=== PATIENT | male | born 1965 | race Caucasian/White ===

== ENCOUNTER 2020-06-23 16:02 | Emergency (ER) | payer OTHER, SELFPAY ==
--- NOTE | ~2020-06-23 | XR_ITS ---
XR chest 1V portable 06/23/2020 17:24 Indication: Chest pain with inspiration. Shortness of breath. Procedure: AP portable chest Comparison: No prior studies for comparison. Findings: Heart size normal. No focal air space disease, pulmonary edema, pleural effusion or suspect ed pneumothorax. Calcified granuloma left upper lobe. No acute osseous abnormality. Impression: 1: No acute cardiopulmonary disease. Reviewed, dictated and finalized at location A. INSPECTOR Impression: 1: No acute cardiopulmonary disease.
[2020-06-23 16:30] VITALS: BP 138/89; PULSE 89; RESP 16; TEMP 36.7; O2SAT 96
--- NOTE | 2020-06-23 16:56 | ECG_ITS ---
Measurements Intervals Diamond Rate: 59 P: 72 HI: 177 QRS: 86 QRSD: 90 T: 70 QT: 379 QTc: 378 Interpretive Statements SINUS BRADYCARDIA BORDERLINE ECG Electronically Signed On 06-23-2020 17:20:57 DEALERSHIP MANAGER by Uriel Avila D.O.
[2020-06-23 17:29] LABS: Troponin I 5.3 ng/L (0.00-60.4)
[2020-06-23 17:30] LABS: D Dimer 0.43 mg/L (0.19-0.50)
--- NOTE | 2020-06-23 17:40 | ED.URI ---
HPI - URI/Sore Throat General Chief Complaint: Upper Respiratory Infection Stated Complaint: covid + sent by doctor Source: patient Mode of arrival: ambulatory Limitations: no limitations History of Present Illness HPI Narrative: Pt was called by health department to check (because he was dx with COVID) and today he was having some burning in chest wall with deep breaths, sore throat and left ear pain. No fevers, no nausea no vomiting. MD elicited complaint: sore throat Onset (ago): day(s) Consistency: constant Able to tolerate fluids by mouth: Yes Exacerbating factors: deep breaths Relieving factors: nothing Context: sick contacts Associated symptoms: denies other symptoms Treatments prior to arrival: none Related Data Home Medications Medication Instructions Recorded Confirmed No Home Medications 06/23/20 06/23/20 Allergies Allergy/AdvReac Type Severity Reaction Status Date / Time Penicillins Allergy Unknown Verified 06/23/20 16:55 Review of Systems Constitutional: Constitutional: Reports no additional constitutional complaints, Denies chills, Reports fatigue, Denies fever(s) and Denies weakness Eyes: Eyes: Reports no additional eye complaints ENT: Denies dysphagia, Denies vertigo, Denies dizziness, Denies epistaxis, Denies nasal congestion and Reports sore throat Cardiovascular: Cardiovascular: Reports no additional cardiovascular complaints Respiratory: Respiratory: Reports no additional respiratory complaints Gastrointestinal: Gastrointestinal: Reports no additional gastrointestinal complaints Musculoskeletal: Musculoskeletal: Reports no additional musculoskeletal complaints Neurologic: Reports system reviewed and no additional complaints, except as documented Psychiatric: Psychiatric: Reports no additional psychiatric complaints Hematologic/Lymphatic: Hematologic/Lymphatic: Reports no additional hematologic/lymphatic complaints Allergic/Immunologic: Allergic/Immunologic: Reports no additional allergic/immunologic complaints PMFSH Social History Social History (Updated 06/23/20 @ 17:44 by Imani Humphries MD) Smoking status: Never smoker Alcohol intake: never Substance use: never Living arrangements: with family Exam Const: General: healthy appearing, no acute distress and alert Nutritional Appearance: well nourished and thin Orientation/consciousness: patient oriented x3 HENMT: Head: normal to inspection Eyes: Pupils: Equal, round and reactive pupils present EOM: EOMs intact bilaterally Neck: Neck: normal visual inspection Chest: Chest palpation & inspection: normal inspection of the chest Resp: Effort & Inspection: normal respiratory effort Auscultation: clear to auscultation bilaterally Cardio: Rate: regular rate Rhythm: regular rhythm GI: GI Palp: Yes Soft to palpation and No Tenderness to palpation present (GI) Auscultation: normal bowel sounds Skin: General skin exam: normal color Rashes: no rashes Neuro: General: patient oriented x3 and moves all extremities Extrem: General: normal to inspection Psych: Appearance: grossly normal Mental Status: mental status grossly normal Thought content: Yes Normal thought content present Course Vital Signs Vital signs: Vital Signs Temperature 36.7 C 06/23/20 16:30 Pulse Rate 89 06/23/20 16:30 Respiratory Rate 16 06/23/20 16:30 Blood Pressure 138/89 06/23/20 16:30 Pulse Oximetry 96 06/23/20 16:30 Temperature 36.7 C 06/23/20 16:30 Pulse Rate 89 06/23/20 16:30 Respiratory Rate 16 06/23/20 16:30 Blood Pressure 138/89 06/23/20 16:30 Pulse Oximetry 96 06/23/20 16:30 MDM - URI/Sore Throat Lab Data Labs: Lab Results 06/23/20 06/23/20 Range/Units 17:08 17:08 D-Dimer 0.43 (0.19-0.50) mg/L Troponin I 5.3 (0.00-60.4) ng/L Discharge Plan Discharge Clinical Impression: COVID-19 Patient Disposition: Home, Self-Care Condition: Stable Instru
[2020-06-23 18:00] VITALS: BP 128/94; PULSE 73; RESP 16; O2SAT 98
== END 2020-06-23 18:00 | disposition home or self-care (01) ==
PROVIDERS: Emergency Provider Emergency Medicine; PCP Internal Medicine
DX: U07.1 COVID-19 (principal)
CPT/HCPCS: 36415; 71045; 84484; 85380; 93005; 99283; 99284

== ENCOUNTER 2020-12-26 15:17 | Emergency (ER) | payer OTHER, SELFPAY ==
[2020-12-26 15:50] VITALS: BP 143/94; PULSE 84; RESP 16; TEMP 37; O2SAT 96
--- NOTE | 2020-12-26 16:09 | ED.LOWEXIN ---
HPI - Extremity Injury (Lower) General Chief Complaint: Extremity Injury, Lower Stated Complaint: Left leg injury Source: patient Mode of arrival: ambulatory Limitations: no limitations History of Present Illness HPI Narrative: this is a 55-year-old gentleman that presents after he was doing some lifting and heard a pop in his left posterior thigh area with currently no bruising no hip pain has good range of motion with no sciatic nerve discomfort or pain, no saddle paresthesias has good range of motion although tender with movement, walking and with palpation. complaint: thigh injury Onset (ago): hour(s) Injury: Left: thigh ( Tender with palpation with no bruising) Type of Injury: hyperflexion Place: home Severity: mild Relieving factors: immobilization Exacerbating factors: movement Related Data Home Medications Medication Instructions Recorded Confirmed No Home Medications 06/23/20 12/26/20 Allergies Allergy/AdvReac Type Severity Reaction Status Date / Time Penicillins Allergy Unknown Verified 12/26/20 16:02 Review of Systems Review of Systems: All systems reviewed & are unremarkable except as noted in HPI and below PMFSH Past Medical History Medical History Patient denies medical problems Social History Social History Smoking status: Never smoker Alcohol intake: never Substance use: never Exam Const: General: no acute distress and alert Orientation/consciousness: patient oriented x3 HENMT: Head: normal to inspection Eyes: Pupils: Equal, round and reactive pupils present Neck: Neck: normal visual inspection, no lymphadenopathy and no meningeal signs Chest: Chest palpation & inspection: normal inspection of the chest Resp: Effort & Inspection: normal respiratory effort Auscultation: clear to auscultation bilaterally Cardio: Rate: regular rate Rhythm: regular rhythm GI: GI Palp: Yes Soft to palpation Percussion: Yes normal to percussion : Testes: Testes normal Urinary Catheter: Urinary Catheter: patent and draining Back/Spine/Pelvis: Back: no CVA tenderness Skin: General skin exam: normal color Rashes: no rashes Neuro: General: patient oriented x3 and moves all extremities Extrem: Other: tenderness posterior left thigh hamstring area is tender with palpation and movement Psych: Appearance: grossly normal and well kempt Mental Status: mental status grossly normal Affect: normal affect Course Course Emergency Course: patient received a shot of IM Toradol, and Duglas wrap. Critical Care Time Critical Care Time Critical Care Time: No Discharge Plan Discharge Clinical Impression: Hamstring strain Qualifiers: Encounter type: initial encounter Laterality: left Qualified Code(s): S76.312A - Strain of muscle, fascia and tendon of the posterior muscle group at thigh level, left thigh, initial encounter Patient Disposition: Home, Self-Care Condition: Stable Instructions: Antibiotic Form, Hamstring Injury (ED) Additional Instructions: can take Motrin 600mg twice daily with meals for the next 4 to 5 days, and follow up with primary care physician for further evaluation. Prescriptions: No Action No Home Medications RF: 0 Follow-up/Referrals: Jose Luis Centeno MD [Primary Care Provider] - Time of Disposition: 16:14
[2020-12-26 16:24] VITALS: BP 143/94; PULSE 84; RESP 16; TEMP 37; O2SAT 96
== END 2020-12-26 16:27 | disposition home or self-care (01) ==
PROVIDERS: Emergency Provider Emergency Medicine; PCP Internal Medicine
DX: S76.312A Strain of muscle, fascia and tendon of the posterior muscle group at thigh level, left thigh, initial encounter (principal); X50.9XXA Other and unspecified overexertion or strenuous movements or postures, initial encounter
CPT/HCPCS: 99282

== ENCOUNTER 2021-01-26 07:29 | Outpatient (RCR) | payer OTHER, SELFPAY ==
--- NOTE | 2021-01-26 08:52 | PTOPEVAL ---
Thank you for referring Hubert Guaman to [facility].? The patient is scheduled to be seen for therapy? ____x/week for ___ weeks. Please review, sign, date and return this plan of care HAL. I agree with and certify that the following plan of care is medically necessary. Referring Physician Date Admitting Provider: Attending Provider: Hubert Herrera Referring Provider: WilPT Outpatient Evaluation Start: 01/26/21 07:06 Freq: Status: Active Protocol: Document 01/26/21 07:05 [facility] (Rec: 01/26/21 08:14 [facility] [id number]) Therapy Assessment Status Assessment Status Assessment Status Evaluation Outpatient Past Medical History Gastrointestinal History Hx Hernia Yes Musculoskeletal History Hx Back Pain Yes Evaluation Information Problem Diagnosis L proximal hamstrings tendon rupture. Onset 12/26/20 Additional Evaluation Detail LEFS = 25% functionally declined Subjective Information patient report she was out in Query Text:As Reported By Patient/ the yard moving bags of dirt. Family he reports he felt his hamstring pop during one toss of a bag of dirt. he reports he does have a 3cm tear in the proximal hamstrings. he reports he is off work until rehabed. 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 he reports the doctors main concern was his return to prior level lifting performance. he reports he has pain in the posterio L thigh that feels like a cramp. he reports he has been resting a lot lately and has had a big flare up. he reports intially lifting his leg/stretching the hamstrings caused pain and squatting/lifting caused pain. he reports his sleeping is unchanged. 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 prior to injury, no issues with the L leg/thigh. Pain Assessment Timing of Pain Assessment Timing of Pain Assessm
--- NOTE | 2021-02-04 08:29 | PTOPEVAL ---
Thank you for referring Hubert Guaman to [facility].? The patient is scheduled to be seen for therapy? ____x/week for ___ weeks. Please review, sign, date and return this plan of care HAL. I agree with and certify that the following plan of care is medically necessary. Referring Physician Date Admitting Provider: Attending Provider: Hubert Herrera Referring Provider: WilPT Outpatient Evaluation Start: 01/26/21 07:06 Freq: Status: Active Protocol: Document 02/04/21 06:54 [facility] (Rec: 02/04/21 08:29 [facility] [id number]) Therapy Assessment Status Assessment Status Assessment Status Progress Outpatient Past Medical History Gastrointestinal History Hx Hernia Yes Musculoskeletal History Hx Back Pain Yes Evaluation Information Problem Diagnosis L proximal hamstrings tendon rupture. Onset 12/26/20 Subjective Information patient reports he feels good Query Text:As Reported By Patient/ this date. he reports he is Family better overall. he reports no pain in the posterior L thigh this date. he reports his pain has been less frequent, but reports at times he will still feel a tightness/knot in the leg. Pain Assessment Timing of Pain Assessment Timing of Pain Assessment Assessment Self Report Self Report Pain Level 0 Pain Score Pain Score 0: Self Report Lower Extremity Muscle Strength Testing Knee Strength Left Knee Flexion Strength 4+ Good + Knee Extension Strength 5 Normal Muscle Length Testing Muscle Length Testing Left Hamstring Length 25 Query Text:(90 - 90 Position) Right Hamstring Length 20 Query Text:(90 - 90 Position) Palpation Assessment Palpation Palpation patient presents with tenderness to the medial distal mm belly of the semi- tendonosis and semi- membranosis. General Exercise General Exercises Exercise Description -passive hamstrings stretching Query Text:Record Sets, Reps, 5 minutes L Resistance, and Position -supine HS sets 3 sec x 20 -SLR x 20 -HS flossing with tennis ball at proximal/ distal HS seated with LAQ x 3 minutes -golfers lifts 2.2lbs x10 bilat -stiff legged deadlifts 15
--- NOTE | 2021-02-18 08:03 | PTOPEVAL ---
Thank you for referring Hubert Guaman to [facility].? The patient is scheduled to be seen for therapy? ____x/week for ___ weeks. Please review, sign, date and return this plan of care HAL. I agree with and certify that the following plan of care is medically necessary. Referring Physician Date Admitting Provider: Attending Provider: Hubert Herrera Referring Provider: WilPT Outpatient Evaluation Start: 01/26/21 07:06 Freq: Status: Active Protocol: Document 02/18/21 07:00 [facility] (Rec: 02/18/21 08:01 [email or web address]) Therapy Assessment Status Assessment Status Assessment Status Discharge Outpatient Past Medical History Gastrointestinal History Hx Hernia Yes Musculoskeletal History Hx Back Pain Yes Evaluation Information Problem Diagnosis L proximal hamstrings tendon rupture. Onset 12/26/20 Additional Evaluation Detail LEFS = 0% functional deficits Subjective Information patient reports he feels Query Text:As Reported By Patient/ great this date. he reports Family no pain in the L posterior thigh this date. Pain Assessment Timing of Pain Assessment Timing of Pain Assessment Assessment Self Report Self Report Pain Level 0 Pain Score Pain Score 0: Self Report Lower Extremity Muscle Strength Testing Hip Strength Left Hip Flexion Strength 5 Normal Hip Extension Strength 5 Normal Knee Strength Left Knee Flexion Strength 5 Normal Knee Extension Strength 5 Normal Muscle Length Testing Muscle Length Testing Left Hamstring Length 10 Query Text:(90 - 90 Position) Right Hamstring Length 15 Query Text:(90 - 90 Position) Gait Assessment Gait Pattern Assessment Gait Pattern No Deviations/Normal General Exercise General Exercises Exercise Description -rece bike 10 minutes for Query Text:Record Sets, Reps, active warm up of tissues and Resistance, and Position to assess for mm endurance of the hamstrings -passive hamstrings stretching 10 minutes -supine HS sets 10 sec x 10 -prone ham swimmers x1 minute with 2lbs bilaterally -HS flossing with tennis ball at proximal/ distal HS seated with LAQ x 3 minutes -golfers lifts 2.2lbs x10 bilat -stiff legged deadlifts 15lb
== END 2021-02-18 09:01 | disposition home or self-care (01) ==
LOC: CHSPT 07:29
PROVIDERS: PCP Internal Medicine
DX: S76.812A Strain of other specified muscles, fascia and tendons at thigh level, left thigh, initial encounter (principal)
CPT/HCPCS: 97035; 97110; 97140; 97161; 97530

== ENCOUNTER 2023-11-22 09:38 | Outpatient (CLI) | payer OTHER, SELFPAY | END 2023-11-22 09:39 | disposition home or self-care (01) | PROVIDERS: PCP Internal Medicine; Visit Provider Internal Medicine | DX: M25.572 Pain in left ankle and joints of left foot (principal) | CPT/HCPCS: 73630 ==

== ENCOUNTER 2023-12-25 01:37 | Day surgery (SDC) | payer OTHER, SELFPAY ==
[2023-12-05 13:41] VITALS: BMI 25.2
--- NOTE | 2023-12-05 14:00 | PC.NURSE ---
Patient has current DNR. Patient verbalized wishes to remain DNR for procedure. He was instructed by this RN to bring in all paperwork. Patient verbalized understanding.
[2023-12-25 06:21] VITALS: BP 124/92; PULSE 68; RESP 18; TEMP 36.2; O2SAT 100
[2023-12-25] MEDS: LACTATED RINGERS 1,000 ML 150 ML IV CONT (06:31)
--- NOTE | 2023-12-25 07:26 | WPDANESEPPF ---
Anes - Initial Pre Proc Eval Procedure: Operation Date: 12/25/23 07:30 Proposed Procedures p Colonoscopy - Toney Beltran DO Date/Time: 12/25/23 07:26 Surgeon: Toney Beltran DO Pre Op Diagnosis: Melena Patient Data Age: 58 Gender: M Height: 1.8 m Weight: 80.4 kg Last Vital Signs Temp 97.1 F L 12/25/23 06:21 Pulse 68 12/25/23 06:21 Resp 18 12/25/23 06:21 BP 124/92 H 12/25/23 06:21 Pulse Ox 100 12/25/23 06:21 O2 Del Method Room Air 12/25/23 06:21 Allergies Allergy/AdvReac Type Severity Reaction Status Date / Time Penicillins Allergy Rash Verified 12/25/23 06:20 Home Medications Medication Instructions Recorded Confirmed Type aspirin 81 mg tablet 81 mg PO DAILY 12/05/23 12/25/23 History metoprolol succinate 25 mg 50 mg PO Q12H 12/05/23 12/25/23 History tablet,extended release 24 hr rosuvastatin 40 mg tablet 40 mg PO HS 12/05/23 12/25/23 History Patient hx anesthesia problems: none Family hx anesthesia problems: none Results Review: All pre-operative results and documents have been reviewed as part of the pre-operative evaluation. [facility] Past Medical History Medical History Patient denies medical problems Social History Social History Smoking status: Never smoker Alcohol intake: never Substance use: never Substance use type: does not use Living arrangements: with family Spiritual care concerns: No Anes - Eval Final PreProcedure Day of Procedure 12/25/23 07:26 Patient weight: normal Heart: regular rate and rhythm Lungs: clear to auscultation Airway: Mallampati scale class II Neurological: alert and oriented Last oral intake: >/= 8 hours ASA classification: III Emergent: no Anesthetic plan: proceed Anesthesia type and monitoring: general GIVS and standard monitoring Results Review: All pre-operative results and documents have been reviewed as part of the pre-operative evaluation. Informed Consent: The patient's anesthetic plan and its attendant risks and benefits were discussed with the patient/family/POA. Questions were solicited and answers provided to the satisfaction of the patient/family/POA.
--- NOTE | 2023-12-25 07:35 | PM.IMHP ---
H&P: HPI History of Present Illness Date/Time: 12/25/23 07:35 Chief Complaint: rectal bleeding with Narrative: this is a 58-year-old man who presents for colonoscopy. He has presented with some occasional rectal bleeding. He does very really have some right lower quadrant pain as well. He has a family history of colon cancer in his father. His last colonoscopy was about 5 years ago. Review of Systems Review of Systems: All systems reviewed & are unremarkable except as noted in HPI and below Constitutional: Constitutional: Denies chills, Denies fever(s), Denies headache(s) and Denies weight loss Eyes: Eyes: Denies change in vision ENT: Denies dizziness, Denies headache(s), Denies neck mass and Denies throat swelling Cardiovascular: Cardiovascular: Denies chest pain, Denies lightheadedness and Denies dyspnea Respiratory: Respiratory: Denies cough, Denies dyspnea and Denies wheezing Gastrointestinal: Gastrointestinal: Denies abdominal pain, Denies change in bowel habits, Denies nausea and Denies vomiting Genitourinary: Genitourinary: Denies hematuria and Denies dysuria Musculoskeletal: Musculoskeletal: Reports as per HPI Integumentary/Breasts: Skin/Breast: Reports as per HPI Neurologic: Denies dizziness and Denies headache(s) Allergic/Immunologic: Allergic/Immunologic: Denies throat swelling and Denies wheezing PMFSH Past Medical History Medical History Patient denies medical problems Social History Social History Smoking status: Never smoker Alcohol intake: never Substance use: never Substance use type: does not use Living arrangements: with family Spiritual care concerns: No Meds Home Medications and Allergies Home Medications Medication Instructions Recorded Confirmed Type aspirin 81 mg tablet 81 mg PO DAILY 12/05/23 12/25/23 History metoprolol succinate 25 mg 50 mg PO Q12H 12/05/23 12/25/23 History tablet,extended release 24 hr rosuvastatin 40 mg tablet 40 mg PO HS 12/05/23 12/25/23 History Allergies Allergy/AdvReac Type Severity Reaction Status Date / Time Penicillins Allergy Rash Verified 12/25/23 06:20 Vital Signs Vital Signs - 24 hr 12/25/23 06:21 Temperature 36.2 C L Pulse Rate 68 Respiratory Rate 18 Blood Pressure 124/92 H Pulse Oximetry 100 Oxygen Delivery Room Air Exam Const: General: no acute distress and alert Orientation/consciousness: patient oriented x3 HENMT: Head: normocephalic and atraumatic Ears: hearing grossly normal bilaterally Face/Nose/Sinus: Normal nares present Mouth: Yes Normal oral and palatal mucosa present Eyes: Periorbital: periorbital findings normal Sclera: sclerae normal EOM: EOMs intact bilaterally Neck: Neck: normal visual inspection, no lymphadenopathy and trachea midline Chest: Chest palpation & inspection: normal inspection of the chest Resp: Effort & Inspection: normal respiratory effort Auscultation: clear to auscultation bilaterally Cardio: Jugular venous distension: no JVD Rate: regular rate Rhythm: regular rhythm Heart sounds: S1 normal heart sound present and S2 normal heart sound present Peripheral pulses: Peripheral pulses 2+ throughout GI: Inspection: normal to inspection GI Palp: Yes Soft to palpation, No Tenderness to palpation present (GI), No Guarding due to palpation present (GI) and No Rebound tenderness present Percussion: Yes normal to percussion Auscultation: normal bowel sounds : General: Yes no CVA tenderness Back/Spine/Pelvis: Back: no CVA tenderness Neuro: General: patient oriented x3, no focal motor deficits and CN's II-XI intact bilaterally Cognition (Neuro): normal cognition Speech: normal speech Motor exam (neuro): 5/5 motor strength present throughout Extrem: General: capillary refill normal and no clubbing, cyanosis or edema Assessment and Plan Assess
[2023-12-25 07:50] VITALS: BP 112/69; PULSE 73; RESP 14; O2SAT 100
[2023-12-25 08:00] VITALS: BP 110/71; PULSE 59; RESP 12; O2SAT 100
[2023-12-25 08:10] VITALS: BP 114/85; PULSE 77; RESP 23; O2SAT 100
== END 2023-12-25 08:20 | disposition home or self-care (01) ==
PROVIDERS: PCP Internal Medicine; Visit Provider Surgery
PROC: 0DJD8ZZ Inspection of Lower Intestinal Tract, Via Natural or Artificial Opening Endoscopic (ICD-10-PCS; CPT 45378; principal; 2023-12-25 07:30)
DX: K92.1 Melena (principal); Z79.82 Long term (current) use of aspirin
CPT/HCPCS: 45378; J2704; J7120

== ENCOUNTER 2024-07-01 09:50 | Outpatient (CLI) | payer OTHER, SELFPAY ==
--- NOTE | ~2024-07-01 | XR_ITS ---
XR knee RT min 4V Ordering provider: Jose Luis Centeno MD History: . right knee pain and swelling . Comparison: None. FINDINGS: BONES: No acute fracture or dislocation. JOINT SPACES: Narrowing of the medial compartment. Chondrocalcinosis seen in the lateral and medial m eniscus. SOFT TISSUES: Fluid in the suprapatellar bursa. IMPRESSION: No acute osseous abnormality right knee. Mild to moderate osteoarthritic changes. Chondrocalcinosis. Reviewed, dictated and finalized at location A.
--- OUTSIDE RECORDS SUMMARY | 2024-07-01 11:07 | XMS_ITS | Patient Health Summary ---
Author Organization [facility] Address [address] [place] [address] Care Team Providers Care Lean Consultant Name Role Phone Unavailable Primary Care Provider Unavailabl e Note from [facility],non-owned Affiliates and Associated Physician Practices is amultiple site organization consisting of ambulatory clinics and hospital sitesin [place], [place], [place] and [place]. This disclosure is being madepursuant to the Care Everywhere program and may not contain all information available regarding this patient. Last updated 18.[facility] Social History Tobacco Use Types Packs/Day Years Used Date Smoking Tobacco: Never Assessed Sex and Gender Information Value Date Recorded Sex Assigned at Not on file Gender Identity Not on file Sexual Orientation Not on file Procedures * GROSS + MICRO EXAM(Performed 05/05/2000) * GROSS + MICRO EXAM(Performed 03/18/1997) Results * GROSS + MICRO EXAM (05/05/2000 3:33 PM COMBUSTION ENGINEER) Only the most recent of2 resultswithin the time period is included. Result CASE NUMBER [id number] Comment: ORDERING PHYSICIAN MARCELLUS NEVAREZ SPECIMEN TYPE Intervertebral Disc Date 05/05/2000 Physician Siva Nevarez Description The specimen is received in a formalin-filled container labeled with the patient's name and lumbar disc . The specimen consists of multiple almaraz, light pink and light yellow, firm, fibrous soft tissue fragments measuring in aggregate 3 x 2 x 1 cm. The entire specimen is wrapped in tissue paper and submitted in a single cassette. MC/bk Microscopic Exam The lumbar disc material consists of proliferative fibrocartilage with some fibrillation and pitting. No significant inflammation is seen and no malignancy is identified. Diagnosis I. Lumbar disc, laminectomy A. Intervertebral disc material. Knot Tier bk Pathologist Leonard Hays M.D. [place]. 05/08/2000 1559 <1> CPT code 49810/88860 MISCELLANEOUS SAMPLES / Unknown 05/05/2000 3:33 PM COMBUSTION ENGINEER 05/05/2000 3:33 PM COMBUSTION ENGINEER Historical Provider LAB - PATHOLOGY/C YTOLOGY ORDERABLES
--- OUTSIDE RECORDS SUMMARY | 2024-07-01 11:07 | XMS_ITS | Encounter Summary ---
Author Organization [facility] Address [address] [place] [address] Care Team Providers Care Plant Technician Name Role Phone Jose Luis Centeno MD Primary Care Provider [phone] Hubert Rodriguez MD Unavailable Unavailabl e Stephanie Thomas APRN, TIE LOADER-C Unavailable Encounter Details Date Type Department Care Team ([facility] Contact Info) Description 11/25/[address] 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 Not on file Not on file Not on file documented as of this encounter Plan of Treatment Upcoming Encounters Date Type Department Care Team (Late Contact Info) Description 01/22/2025 10:00 AM CDT Office Visit [facility] eld [address] [place] [address] Stephanie Thomas APRN, TIE LOADER-C [address] [facility] [address] [place] [phone] documented as of this encounter Procedures Procedure Name Priority Date/Time Associated Diagnosis Comments CMP (ABSTRACTED LAB) Routine 10/27/2022 TSH (OUTSIDE LAB) Routine 10/27/2022 CBC (OUTSIDE LAB) Routine 10/27/2022 LIPID PANEL Routine 10/27/2022 THYROXINE, FREE (FT4) Routine 10/27/2022 MAGNESIUM Routine 10/27/2022 documented in this encounter Results * LIPID PANEL (10/27/2022) Pathologist [facility] CHOLESTEROL 180 <200 HDL 58 >or=40 TRIGLYCERIDES 58 <150 CHOL/HDL RATIO 3.1 <5.0 LDL (CALCULATED) 108 10/27/2022 Default History Genericprovider LABORATORY Final Result * CBC (OUTSIDE LAB) (10/27/2022) Pathologist [facility] WBC 5.2 3.8 - 10.8 HGB 14.9 13.2 - 17.1 HCT 43.4 38.5 - 50.0 PLT 220 140 - 400 RBC 5.11 4.20 - 5.80 10/27/2022 Default History Genericprovider LAB-OUTSIDE/ABST RACTED Final Result * THYROXINE, FREE (FT4) (10/27/2022) Pathologist [facility] FREE T4 1.0 0.8 - 1.8 10/27/2022 Default History Genericprovider LABORATORY Final Result * TSH (OUTSIDE LAB) (10/27/2022) Pathologist [facility] TSH 1.24 0.40 - 4.50 10/27/2022 us Default History Genericprovider LAB-OUTSIDE/ABST RACTED Final Result * MAGNESIUM (10/27/2022) MAGNESIUM 1.9 1.5 - 2.5 10/27/2022 us Default History Genericprovider LABORATORY Final Result * CMP (ABSTRACTED LAB) (10/27/2022) SODIUM S/P/B 140 135 - 146 POTASSIUM S/P/B 4.7 3.5 - 5.3 CHLORIDE S/P/B 103 98 - 110 CO2 29 20 - 32 BUN 12 7 - 25 CREATININE S/P/B 0.97 0.7 - 1.3 CALCIUM S/P/B 9.8 8.6 - 10.3 GLUCOSE 78 65 - 99 mg/dL TOTAL PROTEIN S/P/B 6.9 6.1 - 8.1 ALBUMIN S/P/B 4.7 3.6 - 5.1 AST 31 10 - 35 ALT 33 9 - 46 ALKALINE PHOSPHATASE S/P/B 47 35 - 144 BILIRUBIN TOTAL S/P/B 0.7 0.2 - 1.2 10/27/2022 us Default History Genericprovider LAB-OUTSIDE/ABST RACTED Final Result documented in this encounter Visit Diagnoses Not on filedocumented in this encounter Care Teams Plant Technician Relationship Specialty Start Date End Date Jose Luis Centeno MD [address] [place] [address] PCP - General INTERNAL MEDICINE 12/31/20 Hubert Rodriguez MD [address] [place] [address] Consulting Physician CARDIOVASCULAR DISEASE 12/31/20 Stephanie Thomas, IMPLEMENTATION SPECIALIST PAYROLL, TIE LOADER-C [address] [facility] [address] [place] [address] NURSE PRACTITIONER 12/31/20 documented as of this encounter
--- OUTSIDE RECORDS SUMMARY | 2024-07-01 11:07 | XMS_ITS | Clinical Summary ---
Author Organization [facility] Address [address] [place] [address] Care Team Providers Care Hydrogen Plant Operations Manager Name Role Phone Unavailable Primary Care Provider Unavailabl e Source Comments [facility],non-owned Affiliates and Associated Physician Practices is amultiple site organization consisting of ambulatory clinics and hospital sitesin [place], [place], [place] and [place]. This disclosure is being madepursuant to the Care Everywhere program and may not contain all information available regarding this patient. Last updated 18.[facility] Social History Tobacco Use Types Packs/Day Years Used Date Smoking Tobacco: Never Assessed Sex and Gender Information Value Date Recorded Sex Assigned at Not on file Gender Identity Not on file Sexual Orientation Not on file Plan of Treatment Health Maintenance Due Date Last Done Comments COLOGUARD (AGES 45-75) - COL ON CA SCREENING 1965 COLON MONITORING 1965 COLONOSCOPY - COLON CA SCREENING 1965 CT COLONOGRAPHY - COLON CA SCREENING 1965 Colorectal Cancer Screening 1965 FIT - COLON CA SCREENING 1965 FLEX SIG - COLON CA SCREENING 1965 LIPID TESTING 1965 HIV SCREENING 01/13/1980 HEPATITIS C SCREENING 01/08/1983 DTAP/TDAP/TD VACCINES (1 - Tdap) 01/13/1984 HEPATITIS B VACCINE (1 of 3 - 19+ 3-dose series) 01/13/1984 PNEUMOCOCCAL VACCINE 50+ (1 of 1 - PCV) 2015 ZOSTER VACCINE (1 of 2) 2015 COVID-19 VACCINE ( - 2023-2 5 season) 2023 INFLUENZA VACCINE (#1) 2023 DEPRESSION SCREENING 04/17/2024 HIB VACCINE Aged Out No longer eligi ble based on patient's age to complete this topic HPV VACCINE Aged Out No longer eligi ble based on patient's age to complete this topic MENINGOCOCCAL (Group B) VACC INE SHARED DECISION-MAKING Aged Out No longer eligibl e based on patient's age to complete this topic MENINGOCOCCAL GROUPS A/C/Y/W VACCINE Aged Out No longer eligible b ased on patient's age to complete this topic PNEUMOCOCCAL VACCINE Aged Out No long er eligible based on patient's age to complete this topic
--- OUTSIDE RECORDS SUMMARY | 2024-07-01 11:07 | XMS_ITS | Referral Summary ---
Author Organization [facility] Address [address] [place] [address] Care Team Providers Care Bobbin Hauler Name Role Phone Unavailable Primary Care Provider Unavailabl e Source Comments [facility],non-owned Affiliates and Associated Physician Practices is amultiple site organization consisting of ambulatory clinics and hospital sitesin [place], [place], [place] and [place]. This disclosure is being madepursuant to the Care Everywhere program and may not contain all information available regarding this patient. Last updated 18.[facility] [employer] Social History Tobacco Use Types Packs/Day Years Used Date Smoking Tobacco: Never Assessed Sex and Gender Information Value Date Recorded Sex Assigned at Not on file Gender Identity Not on file Sexual Orientation Not on file Plan of Treatment Not on file
--- OUTSIDE RECORDS SUMMARY | 2024-07-01 11:07 | XMS_ITS | Encounter Summary ---
Author Organization [facility] Address [address] [place] [address] Care Team Providers Care Manager Commercial Sales Name Role Phone Jose Luis Centeno MD Primary Care Provider Hubert Rodriguez MD Unavailable Unavailabl e Stephanie Thomas APRN, PLAYER DEVELOPMENT EXECUTIVE-C Unavailable Encounter Details Date Type Department Care Team ([facility] Contact Info) Description 01/05/2021 Abstract [facility] [address] [place] [phone] Stephanie Thomas APRN, PLAYER DEVELOPMENT EXECUTIVE-C [address] [facility] [address] [place] [address] Social History Tobacco Use Types Packs/Day Years Used Date Smoking Tobacco: Never Assessed Sex and Gender Information Value Date Recorded Sex Assigned at Not on file Legal Sex Male 1:36 PM CDT Gender Identity Not on file Sexual Orientation Straight 06/21/2021 6: 51 AM STORY TELLER COVID-19 Exposure Response Date Recorded In the last month, have you been in contact with someone who was confirmed or suspected to have Coronavirus / COVID-19? No / Unsure 01/08/2021 1:46 PM CDT documented as of this encounter Plan of Treatment Upcoming Encounters Date Type Department Care Team ([facility] Contact Info) Description 01/22/2025 10:00 AM CDT Office Visit [facility] eld [address] [place] [phone] Stephanie Thomas APRN, PLAYER DEVELOPMENT EXECUTIVE-C [address] [facility] [address] [place] [address] documented as of this encounter Visit Diagnoses Not on filedocumented in this encounter Additional Health Concerns Infection Onset Date Last Indicated Resolved Time COVID-19 Rule Out 01/26/2021 01/26/2021 01/26/2021 7:34 PM CDT COVID-19 Rule Out 07/06/2021 07/06/2021 07/06/2021 8:02 PM CDT documented as of this encounter Care Teams Manager Commercial Sales Relationship Specialty Start Date End Date Jose Luis Centeno MD [address] [place] [address] PCP - General INTERNAL MEDICINE 12/31/20 Hubert Rodriguez MD [address] [place] [address] Consulting Physician CARDIOVASCULAR DISEASE 12/31/20 Stephanie Thomas APRN, PLAYER DEVELOPMENT EXECUTIVE-C [address] [facility] [address] [place] [phone] NURSE PRACTITIONER 12/31/20 documented as of this encounter
--- OUTSIDE RECORDS SUMMARY | 2024-07-01 11:07 | XMS_ITS | Clinical Summary ---
Author Organization [facility] Address [facility] [place] [address] Care Team Providers Care Black Top Paver Operator Name Role Phone Jose Luis Centeno MD Primary Care Provider [phone] Hubert Rodriguez MD Unavailable UnavailStephanie Brownlee APRN, BAILIFF-C Unavailable Allergies Active Allergy Reactions Criticality Noted Date Comments Penicillins Unknown 01/08/2021 Medications triamcinolone 0.1 % cream see administration instructions. Apply a thin layer to the affected area(s) by topical route 2 times per day 1 Active aspirin EC (ECOTRIN) 81 MG tablet Take 1 tablet (81 mg total) by mouth daily. Active diphenhydrAMIN E 25 MG capsule Take 2 capsules (50 mg total) by mouth as needed. Active St Nixon Wort 300 MG Cap Take 1 capsule by mouth daily. Active metoprolol succinate ER (TOPROL-XL) 25 MG 24 hr tablet Take 0.5 tablets (12.5 mg total) by mouth 2 (two) times a day. 3 Active rosuvastatin (CRESTOR) 40 MG tablet Take 1 tablet (40 mg total) by mouth daily. 4 Active nitroglycerin (NITROSTAT) 0.[address] 1 tablet (0.4 mg total) under the tongue every 5 (five) minutes as needed for Chest Pain. 25 tablet 1 4 Active Active Problems Problem Noted Date Diagnosed Date S/P coronary artery stent placement 02/08/2021 Coronary artery disease invo lving [place] coronary artery of [place] heart 01/29/2021 Chest pain, unspecified type 01/08/2021 Family history of coronary artery disease 2020 Ventricular ectopy 01/08/2021 Palpitations 01/08/2021 Hyperlipidemia, unspecified hyperlipidemia type 01/08/2021 Family History Medical History Relation Comments Clotting Disorder Brother Cancer Father Hyperlipidemia Father Heart Attack Maternal Grandfather Stroke Mother Heart Attack Paternal Grandfather Stroke Paternal Grandmother Relation Status Comments Brother Alive Father (Age 49) Maternal Grandfather (Age 64) Mother Alive Paternal Grandfather (Age 71) Paternal Grandmother (Age 80) Social History Tobacco Use Types Packs/Day Years Used Date Smoking Tobacco: Former Cigarettes Q uit: 1999 Smokeless Tobacco: Never Alcohol Use Standard Drinks/Week Comments Not Currently 0 (1 standard drink = 0.6 oz pur e alcohol) Sex and Gender Information Value Date Recorded Sex Assigned at Not on file Legal Sex Male 1:36 PM CDT Gender Identity Not on file Sexual Orientation Straight 06/21/2021 6: 51 AM SEWING MACHINE 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 PLASTIC ZIPPER 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 Not on file Not on file Last Filed Vital Signs Vital Sign Reading Time Taken Comments Blood Pressure 120/72 01/23/2024 9:46 AM CDT Pulse 62 01/23/2024 9:46 AM CDT Temperature 36.2 C (97.2 F) 07/09/2021 7:56 AM CDT Respiratory Rate 16 01/23/2024 9:46 AM CDT Oxygen Saturation 97% 01/23/2024 9:46 AM CDT Inhaled Oxygen Concentration - - Weight 82.3 kg (181 lb 6.4 oz) 01/23/2024 9:46 AM CDT Height 180.3 cm (5' 11 ) 01/23/2024 9:46 AM CDT Body Mass Index 25.3 01/23/2024 9:46 AM CDT Plan of Treatment Upcoming Encounters Date Type Department Care Team (Late st Contact Info) Description 01/22/2025 10:00 AM CDT Office Visit [facility] el[facility] [address] [place] [address] Stephanie Thomas, ELECTRIC KNIFE OPERATOR, BAILIFF-C [address] [facility] [address] [place] [address] Health Maintenance Due Date Last Done Comments Colorectal Cancer Screening Colonoscopy (10 Years) 1965 Annual Physical 01/13/1968 Pneumococcal Vaccine: Pediatrics (0 to 5 Years) and At-Risk Patients (6 to 64 Years) (1 of 2 - PCV) 1971 Hepatitis C 1983 Zoster Vaccines (1 of 2) 2015 ASCVD LDL 10/28/2023 10/27/2022, 04/27/2021 COVID-19 Vaccine (1 - 2023-2 5 season) 2023 Influenza Adult (#1) 2024 DTaP, Tdap and Td Vaccines ( 2 - Td or Tdap) 01/08/2032 01/07/2022 Meningococcal B Vaccine Aged Out No l onger eligible based on patient's age to complete this topic Meningococcal Vaccine Aged Out No obdulia jhony eligible based on patient's age to complete this topic RSV Immunizations Under 20 Months Aged Out No longer eligible b ased on patient's age to complete this topic Medical Devices Implanted Type Area Generator Rebuilder Device Identifier Shelf Expiration Date Model / Serial / Lot Cv Synergy 3.5mm X 24mm Leroy Mid Lad- 1 Implanted: by Pravin Schumacher MD (Quantity not on file) Stent Coronary LAD [employer] 08/25/2022 [id number] / / [id number] Procedures Procedure Name Priority Date/Time Associated Diagnosis Comments LIPID PANEL Routine 10/27/2022 from Last 3 Months or Most Recently Relevant to Health Maintenance Results * LIPID PANEL (10/27/2022) CHOLESTEROL 180 <200 HDL 58 >or=40 TRIGLYCERIDES 58 <150 CHOL/HDL RATIO 3.1 <5.0 LDL (CALCULATED) 108 10/27/2022 us Default History Genericprovider LABORATORY Final Result from Last 3 Months or Most Recently Relevant to Health Maintenance Insurance [employer] Advance Directives * Full Code (Latest Code Status on File) Date Activated Date Inactivated Comments 07/09/2021 1:20 PM 07/09/2021 5:07 PM * Full Code Date Activated Date Inactivated Comments 01/29/2021 9:51 AM 01/29/2021 2:38 PM Care Teams Black Top Paver Operator Relationship Specialty Start Date End Date Jose Luis Centeno MD [address] [place] [phone] PCP - General INTERNAL MEDICINE 12/31/20 Hubert Rodriguez MD [address] [place] [address] Consulting Physician CARDIOVASCULAR DISEASE 12/31/20 Stephanie Thomas, ELECTRIC KNIFE OPERATOR, BAILIFF-C [address] [facility] [address] [phone] NURSE PRACTITIONER 12/31/20
--- OUTSIDE RECORDS SUMMARY | 2024-07-01 11:07 | XMS_ITS | Referral Summary ---
Author Organization [facility] Address [address] [place] [address] Care Team Providers Care Electrical Line Splicer Name Role Phone Jose Luis Centeno MD Primary Care Provider [phone] Allergies Active Allergy Reactions Criticality Noted Date Comments Penicillins Unknown 01/08/2021 Medications acetaminophen (TYLENOL) 500 mg tablet Take 500 mg by mouth every 6 (six) hours as needed Active [place]'s wort 300 mg capsule Take 1 capsule by mouth daily Active aspirin 81 mg enteric coated tablet Take 81 mg by mouth daily Active atorvastatin (LIPITOR) 10 mg tablet Take 10 mg by mouth daily 1 Active diphenhydrAMIN E (diphenhydrAMI NE) 25 mg capsule Take 50 mg by mouth nightly Active ibuprofen (ADVIL,MOTRIN) 800 mg tablet Take 800 mg by mouth every 6 (six) hours as needed Active metoprolol tartrate (LOPRESSOR) 50 mg immediate release tablet 1 Active triamcinolone (KENALOG) 0.1 % cream see administration instructions. Apply a thin layer to the affected area(s) by topical route 2 times per day 1 Active nitroglycerin (NITROSTAT) 0.4 mg SL tablet 1 Active metoprolol XL (TOPROL-XL) 25 mg extended release tablet 1 Active clopidogreL (PLAVIX) 75 mg tablet 1 Active Active Problems Problem Noted Date Diagnosed Date Chest pain 01/08/2021 Family history of coronary artery disease 2020 Hyperlipidemia 01/08/2021 Palpitations 01/08/2021 Ventricular ectopy 01/08/2021 Social History Tobacco Use Types Packs/Day Years Used Date Smoking Tobacco: Former Cigarettes 1.5 20 1 980 - 2000 Smokeless Tobacco: Never AUDIT-C Answer Date Recorded Q1: How often do you have a drink containing alc ohol? Never 2021 Average Number of Drinks Not on file 021 Frequency of Binge Drinking Not on file 12/17 Personal Safety Answer Date Recorded Getting School Help Needed Not on file 07/01 Sex and Gender Information Value Date Recorded Sex Assigned at Not on file Legal Sex Male 9:11 AM CDT Gender Identity Not on file Sexual Orientation Not on file Last Filed Vital Signs Vital Sign Reading Time Taken Comments Blood Pressure - - Pulse - - Temperature - - Respiratory Rate - - Oxygen Saturation - - Inhaled Oxygen Concentration - - Weight 81.6 kg (180 lb) 2021 12:06 PM CDT Height 180.3 cm (5' 11 ) 2021 12:06 PM CDT Body Mass Index 25.1 2021 12:06 PM CDT Plan of Treatment Not on file Insurance [employer]ETNA SIG [id number] * Guarantor: Hubert Guaman Account Type Relation to Patient Date of Phone Billing Address Personal/Family Self [address] [place] [address] Care Teams Electrical Line Splicer Relationship Specialty Start Date End Date Jose Luis Centeno MD [address] [place] [address] PCP - General Internal Medicine 01/12/21
--- OUTSIDE RECORDS SUMMARY | 2024-07-01 11:07 | XMS_ITS | Clinical Summary ---
Author Organization [facility] Address [address] [place] [address] Care Team Providers Care Bakery Associate Name Role Phone Jose Luis Centeno MD Primary Care Provider Allergies Active Allergy Reactions Criticality Noted Date Comments Penicillins Unknown 01/08/2021 Medications acetaminophen (TYLENOL) 500 mg tablet Take 500 mg by mouth every 6 (six) hours as needed Active [place]'s wort 300 mg capsule Take 1 capsule [...] Hyperlipidemia 01/08/2021 Palpitations 01/08/2021 Ventricular ectopy 01/08/2021 Surgical History Surgery Date Site/Laterality Comments SPINAL FUSION INGUINAL HERNIA REPAIR Medical History Medical History Date Comments Asthma Gout Hypercholesteremia Pneumonia Premature ventricular contraction Seasonal allergies Alcoholism (HCC) recovering alco holic Family History Medical History Relation Name Comments Cancer Brother Clotting disorder Brother Cancer Father Gout Father Arthritis Mother Clotting disorder Mother Stroke Mother Relation Name Status Comments Brother Father Mother Social History Tobacco Use Types Packs/Day Years [...] on file Sexual Orientation Not on file Obstetrics History Last Filed Vital Signs Vital Sign Reading [...] Treatment Not on file Insurance AETNA SIG [id number] Care Teams Bakery Associate Relationship Specialty Start Date End Date Jose Luis Centeno MD [address] [place] [address] PCP - General Internal Medicine 01/12/21
--- OUTSIDE RECORDS SUMMARY | 2024-07-01 11:08 | XMS_ITS | Patient Health Record ---
Author Organization [facility] Address [address] [place], [place] [address] Care Team Providers Care Game Artist Name Role Phone Randee Centeno Unavailable Unavailable MARTINA CARMEN Unavailable [phone] Allergies Allergen (clinical drug ingredient) Drug/Non Drug Allergy documented on EMR Reaction Allergy Type Onset Date Status Penicillin Unknown Drug Allergy Active Reason For Referral No Information Medications Medication SIG (Take, Route, Frequency, Duration) Notes Start Date End Date Status Metoprolol Succinate 25 MG 1 capsule Ora lly Once a day Active Vital Signs Height-cm 180.34 cm 12/21/2023 Weight-kg 79.83 kg 12/21/2023 Height 71 in 12/21/2023 Weight 176 lbs 12/21/2023 BMI 24.54 kg/m2 12/21/2023 Encounters Encounter Location Date Provider Diagnosis [address] [id number] 12/21/2023 MARTINA CARMEN Plantar fascial fibromatosis M72.2 ; Short Achilles tendon (acquired), left ankle M67.02 ; Localized edema R60.0 and Pain in left foot M79.[address] [id number] 01/04/2024 MARTINA CARMEN Plantar fascial fibromatosis M72.2 ; Short Achilles tendon (acquired), left ankle M67.02 ; Localized edema R60.0 and Pain in left foot M79.672 Assessments Encounter Date Diagnosis (ICD Code) Assessment Notes Treatment Notes Treatment Clinical Notes Section Notes 12/21/2023 Short Achilles tendon (acquired), left ankle (ICD-10 - M67.02) Eduated patient on etiology and possible sequelae of equinus deformity. Encouraged patient to begin with calf and achilles tendon stretching exercise regimen to help accomodate for high plantar peak pressures and manage tightness. 12/21/2023 Plantar fascial fibromatosis (ICD-10 - M72.2) I discussed anti-inflammato ry treatment options and various means of pronation control with the patient. I educated the patient on icing and stretching, supportive shoegear, and the use of orthotic devices. The patient was dispensed and fitted with over the counter power step pinnacle arch supports. The patient was educated on their use and effect. All questions were answered. 01/04/2024 Short Achilles tendon (acquired), left ankle (ICD-10 - M67.02) Eduated patient on etiology and possible sequelae of equinus deformity. Encouraged patient to begin with calf and achilles tendon stretching exercise regimen to help accomodate for high plantar peak pressures and manage tightness. 01/04/2024 Plantar fascial fibromatosis (ICD-10 - M72.2) I discussed anti-inflammato ry treatment options and various means of pronation control with the patient. I educated the patient on icing and stretching, supportive shoegear, and the use of orthotic devices. The patient was dispensed and fitted with second pair of over the counter power step pinnacle arch supports. The patient was educated on their use and effect. All questions were answered. 12/21/2023 Localized edema (ICD-10 - R60.0) 01/04/2024 Localized edema (ICD-10 - R60.0) 01/04/2024 Pain in left foot (ICD-10 - M79.672) 12/21/2023 Pain in left foot (ICD-10 - M79.672) Plan Of Treatment No Information Insurance Providers Payer Name Payer Address Payer Phone Subscriber Number Group Number Insured Name Patient Relationship to Insured Coverage Start Date Coverage End Date [facility] [address] [place] [phone] [id number] Hubert Guaman Self - patient is the insured Medical (General) History Medical History History ICD Code acid reflux Pneumonia Back Trouble heart/disease/failure Surgical History Surgery Date(Month/Year) spinal fusion Hernia heart stents
--- OUTSIDE RECORDS SUMMARY | 2024-07-01 11:08 | XMS_ITS ---
Author Organization [facility] Address [address] [place], [place] [id number] Care Team Providers Care Karate Instructor Name Role Phone Randee Centeno Unavailable Unavailable MARTINA CARMEN Unavailable [phone] Allergies Allergen (clinical drug ingredient) Drug/Non Drug Allergy documented on EMR Reaction Allergy Type Onset Date Status Penicillin Unknown Drug Allergy Active REASON FOR VISIT L ft arch pain Medications Medication SIG (Take, Route, Frequency, Duration) Notes Start Date End Date Status Metoprolol Succinate 25 MG 1 capsule Ora lly Once a day Active Vital Signs Weight 176 lbs 12/21/2023 Weight-kg 79.83 kg 12/21/2023 Height 71 in 12/21/2023 Height-cm 180.34 cm 12/21/2023 BMI 24.54 kg/m2 12/21/2023 Encounters Encounter Location Date Provider Diagnosis [facility] [address] [place], [place] [id number] 12/21/2023 MARTINA CARMEN Plantar fascial fibromatosis M72.2 ; Short Achilles tendon (acquired), left ankle M67.02 ; Localized edema R60.0 and Pain in left foot M79.672 Assessments Encounter Date Diagnosis (ICD Code) Assessment Notes Treatment Notes Treatment Clinical Notes Section Notes 12/21/2023 Plantar fascial fibromatosis (ICD-10 - M72.2) [...] and effect. All questions were answered. 12/21/2023 Short Achilles tendon (acquired), left ankle (ICD-10 - M67.02) Eduated patient on etiology and possible sequelae of equinus deformity. Encouraged patient to begin with calf and achilles tendon stretching exercise regimen to help accomodate for high plantar peak pressures and manage tightness. 12/21/2023 Localized edema (ICD-10 - R60.0) 12/21/2023 Pain in left foot (ICD-10 - M79.672) Plan Of Treatment Treatment Notes Assessment Notes Plantar fascial fibromatosis I discussed anti-inflammatory treatment options and various means of pronation control with the patient. I educated the patient on icing and stretching, supportive shoegear, and the use of orthotic devices. The patient was dispensed and fitted with over the counter power step pinnacle arch supports. The patient was educated on their use and effect. All questions were answered. Short Achilles tendon (acquired), left a nkle Eduated patient on etiology and possible sequelae of equinus deformity. Encouraged patient to begin with calf and achilles tendon stretching exercise regimen to help accomodate for high plantar peak pressures and manage tightness. Next Appt Details Follow Up: 2 Weeks, Reason: Progress Notes * Hubert BERMUDEZDOB:[birth year] (58 yo M)Acc No.[id number]:12/21/2023 Progress Notes Patient: Hubert MELGOZA Provider: Ana CARMEN :1965 A ge:58 Y S ex:Male Date:12/21/2023 Address:[address] [place], [place] [id number] Subjective: * Chief Complaints: * 1 . L ft arch pain. * HPI: H PI: New Complaint P atient presents for a new patient consultation., Patient complains of an issue to arch pain and cramping in the left foot. Duration of problem is several years. Patient denies any injury., MA: obdulia. * ROS: G eneral / Constitutional: Patient denies w eakness. R espiratory: Patient denies c hronic cough, shortness of breath, sputum production. C ardiovascular: Patient denies c hest pain, history of AK, irregular heartbeat. M usculoskeletal: Patient complains of h eel pain, flat feet/ planus. ? P eripheral Vascular: Patient denies b lanching of skin, cold extremities, decreased sensation in extremities. S kin: Patient denies f ungal nails, itching. N eurologic: Patient denies d izziness, gait abnormality, headache. * Medical History: A shireen reflux, Pneumonia, Back Trouble, Heart/disease/failure. * Surgical History: s laurel fusion , Hernia , heart stents . * Family History: F ather: Cancer. M other: stroke, rheumatoid arthritis. * Medications: T aking Metoprolol Succinate 25 MG Capsule ER 24 Hour Sprinkle 1 capsule Orally Once a day * Allergies: P enicillin: Allergy. Objective: * Vitals: S hoe Size: 11.5, Wt:176lbs, Wt-k.83 kg, Ht: 71 in, Ht-cm: 180.34 cm, BMI:24.54Index, Body Surface Area: 2. * Examination: P hysical Examination: V ascular: Dorsalis Pedis pulse noted at 2/4 right foot and 2/4 left foot and Posterior Tibial pulse noted at 2/4 right foot and 2/4 left foot, Capillary refill times noted to be less than three seconds x ten, Temperature gradient noted to be warm to cool to bilateral foot, pedal hair present to bilateral foot and no varicosities are noted Dermatologic: there are no open lesions, no signs of active clinical infection, no erythema noted, no ecchymoses, nails are at hygienic length during todays visit, interdigital spaces clean dry and intact Neurology: protective sensation intact to light touch bilateral digits one through five, vibratory sensation intact to first metatarsophalangeal joint bilaterally Musculoskeletal: pain to palpation medial calcaneal tubercle bilateral foot, pain along medial band of plantar fascia bilateral foot, ankle joint range of motion 0 degree with knee extended bilateral side, arch height 2/5 NWB bilateral 1/5 WB, no calf pain noted b/l, too many toes signs noted on weight bearing exam, pain along course of posterior tibial tendon left ankle, pain with left sided single heel raise test. Assessment: * Assessment: 1. P lantar fascial fibromatosis - M72.2 (Primary) 2 . S hort Achilles tendon (acquired), left ankle - M67.02 3 . L ocalized edema - R60.0 4 . P ain in left foot - M79.672? Plan: * Treatment: 2. S hort Achilles tendon (acquired), left ankle Notes: Eduated patient on etiology and possible sequelae of equinus deformity. Encouraged patient to begin with calf and achilles tendon stretching exercise regimen to help accomodate for high plantar peak pressures and manage tightness. * Follow Up: 2 Weeks * Billing Information: * Visit Code: 97078 Office Visit, New Pt., Level 3. * Procedure Codes: * Sign off status: Completed true * Provider: Ana CARMEN Date: 0 12/21/2023 Generated for Dilcia elizalde/Tripp/Bonilla on: 0 07/01/2024 11:07 AM CDT History and Physical Notes * HPI (History of Present Illness) Category Sub-Category Detail Notes Category Not es HPI New Complaint Patient presents for a new patient consultation., Patient complains of an issue to arch pain and cramping in the left foot. Duration of problem is several years. Patient denies any injury., MA: [facility] Examination Category Sub-Category Detail Notes Category Not es Physical Examination Vascular: Dorsalis Pedis pulse noted at 2/4 right foot and 2/4 left foot and Posterior Tibial pulse noted at 2/4 right foot and 2/4 left foot, Capillary refill times noted to be less than three seconds x ten, Temperature gradient noted to be warm to cool to bilateral foot, pedal hair present to bilateral foot and no varicosities are noted Dermatologic: there are no open lesions, no signs of active clinical infection, no erythema noted, no ecchymoses, nails are at hygienic length during todays visit, interdigital spaces clean dry and intact Neurology: protective sensation intact to light touch bilateral digits one through five, vibratory sensation intact to first metatarsophalangeal joint bilaterally Musculoskeletal: pain to palpation medial calcaneal tubercle bilateral foot, pain along medial band of plantar fascia bilateral foot, ankle joint range of motion 0 degree with knee extended bilateral side, arch height 2/5 NWB bilateral 1/5 WB, no calf pain noted b/l, too many toes signs noted on weight bearing exam, pain along course of posterior tibial tendon left ankle, pain with left sided single heel raise test
--- OUTSIDE RECORDS SUMMARY | 2024-07-01 11:08 | XMS_ITS ---
Author Organization [facility] Address [address] [place], [place] [id number] Care Team Providers Care Voip Technician Name Role Phone Randee Centeno Unavailable Unavailable NELLAMARISELAUR Unavailable [phone] REASON FOR VISIT *Wound check Medications Medication SIG (Take, Route, Frequency, Duration) Notes Start Date End Date Status Metoprolol Succinate 25 MG 1 capsule Ora lly Once a day Active Encounters Encounter Location Date Provider Diagnosis [address] [id number] 01/04/2024 MARTINA CARMEN Plantar fascial fibromatosis M72.2 ; Short Achilles tendon (acquired), left ankle M67.02 ; Localized edema R60.0 and Pain in left foot M79.672 Assessments Encounter Date Diagnosis (ICD Code) Assessment Notes Treatment Notes Treatment Clinical Notes Section Notes 01/04/2024 Plantar fascial fibromatosis (ICD-10 - M72.2) [...] plantar peak pressures and manage tightness. 01/04/2024 Localized edema (ICD-10 - R60.0) 01/04/2024 [...] manage tightness. Next Appt Details Follow Up: 3 Months, Reason: Progress Notes * Hubert BERMUDEZDOB:[birth year] (59 yo M)Acc No.[id number]:01/04/2024 Patient: Hubert MELGOZA Provider: Ana CARMEN :1965 A ge:58 Y S ex:Male Date:01/04/2024 Address:[address] [place], [place] [id number] Subjective: * Chief Complaints: * 1 . *Wound check. * HPI: H PI: Follow Up Visit P atient presents for follow up visit for left foot pain. Patient was given insoles at the last appointment and states that his pain is improving. , MA: [facility]. * ROS: G eneral / Constitutional: Patient denies w eakness. R espiratory: Patient denies c hronic cough, shortness of breath, sputum production. C ardiovascular: Patient denies c hest pain, history of [place], irregular heartbeat. M usculoskeletal: Patient complains of h eel pain, flat feet/ planus. ? P eripheral Vascular: Patient denies b lanching of skin, cold extremities, decreased sensation in extremities. S kin: Patient denies f ungal nails, itching. N eurologic: Patient denies d izziness, gait abnormality, headache. * Medical History: * Medications: T nelsy Metoprolol Succinate 25 MG Capsule ER 24 Hour Sprinkle 1 capsule Orally Once a day Objective: * Vitals: * Examination: P hysical Examination: V ascular: [...] . P ain in left foot - M79.672 Plan: * Treatment: 2. S hort Achilles tendon (acquired), left ankle Notes: Eduated patient on etiology and possible sequelae of equinus deformity. Encouraged patient to begin with calf and achilles tendon stretching exercise regimen to help accomodate for high plantar peak pressures and manage tightness. * Follow Up: 3 Months * Billing Information: * Visit Code: 06421 Office Visit, Est Pt., Level 3. * Procedure Codes: * Sign off status: Completed true * Provider: Ana CARMEN Date: 0 01/04/2024 Generated for Printi ng/Tripp/eTransmitting on: 0 07/01/2024 11:07 AM CDT History and Physical Notes * HPI (History of Present Illness) Category Sub-Category Detail Notes Category Not es HPI Follow Up Visit Patient presents for follow up visit for left foot pain. Patient was given insoles at the last appointment and states that his pain is improving. , MA: [facility] Examination Category Sub-Category Detail Notes Category Not [...]
== END 2024-07-01 09:51 | disposition home or self-care (01) ==
LOC: CHSIMG 09:53
PROVIDERS: PCP Internal Medicine; Visit Provider Internal Medicine
DX: M25.561 Pain in right knee (principal); M79.89 Other specified soft tissue disorders; M11.261 Other chondrocalcinosis, right knee
CPT/HCPCS: 73564

== ENCOUNTER 2024-07-11 10:31 | Outpatient (CLI) | payer OTHER, SELFPAY ==
--- NOTE | ~2024-07-11 | MR_ITS ---
EXAMINATION: MR knee RT wo con DATE: 07/11/2024 10:59 INDICATION: Right knee pain. TECHNIQUE: Magnetic resonance imaging (MRI) of the right knee was performed without intravenous contr ast. Sequences included axial PD-weighted FS FSE, coronal PD-weighted FSE and PD-weighted FS FSE, sag ittal PD-weighted FSE, and sagittal T2-weighted FS FSE. COMPARISON: Right knee radiographs 07/01/2024 FINDINGS: Medial compartment: There is a complex tear involving body and posterior horn of medial meniscus. There is shallow partia l-thickness cartilage loss of femoral condyle and tibial condyle, deep at the anterior articular surf aces. There is mild subchondral edema-like marrow signal intensity of tibial condyle anteriorly. Oste ophytes are noted. Lateral compartment: Lateral meniscus is normal. There is cartilage surface irregularity of tibial condyle and femoral con dyle. Osteophytes are noted. Patellofemoral compartment: There is partial-thickness cartilage loss of patella, deep at the medial facet where there is mild richardson bchondral edema-like marrow signal intensity. There is shallow partial-thickness cartilage loss of tr ochlea. Osteophytes are noted. Ligaments and tendons: The anterior and posterior cruciate ligaments are normal. There are changes of prior sprains of media l collateral ligament and fibular collateral ligament characterized by thickening and increased signa l intensity. There is mild patellar tendinopathy. Fluid: There is a small knee joint effusion. There is a trace Rodriguez's cyst. There is mild prepatellar and richardson perficial infrapatellar bursitis. IMPRESSION: 1. Moderate chondrosis of medial and patellofemoral compartments and mild chondrosis of lateral richie rtment. 2. Tear of medial meniscus. 3. Small knee joint effusion. Reviewed, dictated and finalized at location A. IMPRESSION: 1. Moderate chondrosis of medial and patellofemoral compartments and mild chond rosis of lateral compartment. 2. Tear of medial meniscus. 3. Small knee joint effusion.
== END 2024-07-11 10:32 | disposition home or self-care (01) ==
LOC: GOSHIMG 10:31
PROVIDERS: PCP Internal Medicine; Visit Provider Internal Medicine
DX: M25.461 Effusion, right knee (principal); S83.241A Other tear of medial meniscus, current injury, right knee, initial encounter; X58.XXXA Exposure to other specified factors, initial encounter
CPT/HCPCS: 73721

== ENCOUNTER 2024-10-06 08:47 | Emergency (ER) | payer OTHER, SELFPAY ==
[2024-10-06 09:02] VITALS: BP 127/73; PULSE 83; RESP 16; TEMP 36.2; O2SAT 99
--- NOTE | 2024-10-06 09:26 | ED.SKABFB ---
HPI - Skin/Abscess/Foreign Bdy General Chief complaint: Skin/Abscess/Foreign Body Stated complaint: Bug Bite Patient presents to the [facility] with complaints bite with itching bruising redness to its item right foot that he noticed 6 days. Patient reports he was fishing was bitten something. Started itchy to the is slowly other symptoms. denies drainage, crusting, significant pain, numbness fever chills aches. Related Data Home Medications ?Medication ?Instructions ?Recorded ?Confirmed ?Last Taken ?Type aspirin 81 mg tablet 81 mg PO DAILY 12/05/23 09/16/24 12/24/23 History metoprolol succinate 25 mg 50 mg PO Q12H 12/05/23 09/16/24 12/24/23 History tablet,extended release 24 hr rosuvastatin 40 mg tablet 40 mg PO HS 12/05/23 09/16/24 12/24/23 History ezetimibe 10 mg tablet 10 mg PO DAILY 09/16/24 09/16/24 Unknown History Allergies Allergy/AdvReac Type Severity Reaction Status Date / Time Penicillins Allergy Rash Verified 10/06/24 09:06 Review of Systems Constitutional: Constitutional: Reports as per HPI, Denies chills, Denies fatigue, Denies fever(s) and Denies weakness ENT: Reports system reviewed and no additional complaints, except as documented Cardiovascular: Cardiovascular: Reports no additional cardiovascular complaints Respiratory: Respiratory: Reports no additional respiratory complaints Gastrointestinal: Gastrointestinal: Reports no additional gastrointestinal complaints Genitourinary: Genitourinary: Reports no additional male genitourinary complaints Musculoskeletal: Musculoskeletal: Reports as per HPI, Denies arthralgias, Denies joint swelling and Denies muscle cramps Integumentary/Breasts: Skin/Breast: Reports as per HPI, Reports pruritus, Reports erythema and Denies rash Comments: Insect bite right foot Neurologic: Reports as per HPI, Denies focal weakness, Denies numbness and Denies weakness Psychiatric: Psychiatric: Reports no additional psychiatric complaints Endocrine: Endocrine: Reports no additional endocrine complaints Hematologic/Lymphatic: Hematologic/Lymphatic: Reports no additional hematologic/lymphatic complaints Allergic/Immunologic: Allergic/Immunologic: Reports no additional allergic/immunologic complaints [facility] Past Medical History Medical History (Updated 10/06/24 @ 09:42 by SHAUNA SmithC) Heart disease Asthma Allergies Hyperlipidemia Surgical History Surgical History (Updated 09/16/24 @ 09:09 by Shelly Nelson [facility]) History of hernia surgery (~1995) Hx of heart artery stent (~2020) History of back surgery 1996 2000 2002 Family History Family History (Updated 09/16/24 @ 09:10 by Shelly Nelson [facility]) Mother Hypertension Cerebrovascular accident Father Hypertension Colon cancer Grandparent Heart disease Hypertension Cerebrovascular accident Social History Social History (Updated 09/16/24 @ 09:10 by Shelly Nelson [facility]) Smoking status: Former smoker Tobacco type: cigarettes Alcohol intake: never Substance use: never Substance use type: does not use Living arrangements: with family Spiritual care concerns: No Exam Const: General: healthy appearing and no acute distress Orientation/consciousness: patient oriented x3 Limitations: no limitations Resp: Effort & Inspection: normal respiratory effort Auscultation: clear to auscultation bilaterally Cardio: Rate: regular rate Rhythm: regular rhythm Skin: General skin exam: normal color Wounds: wounds noted Other: circular area erythema with center bruised area with a puncture wound consistent with insect bite. Minimal tenderness with palpation. No active drainage, crusting or streaking. Neuro: General: patient oriented x3 and moves all extremities Speech: normal speech Gait exam (Neuro): Normal gait present Extrem: General: no edema Psych: Mental Status: mental status grossly normal Affect: normal affect Attitude: cooperative Course Course Level of Care: Express Care Visit Vital Signs Vital signs: Vital Signs Temperature 97.2 F L 10/06/24 09:02 Pulse Rate 83 10/06/24 09:02 Respiratory Rate 16 10/06/24 09:02 Blood Pressure 127/73 10/06/24 09:02 Pulse Oximetry 99 10/06/24 09:02 Temperature 97.2 F L 10/06/24 09:02 Pulse Rate 83 10/06/24 09:02 Respiratory Rate 16 10/06/24 09:02 Blood Pressure 127/73 10/06/24 09:02 Pulse Oximetry 99 10/06/24 09:02 MDM - Skin/Abscess/Foreign Bdy MDM Narrative Medical decision making narrative: Discharge instructions reviewed with patient, as well as provided in writing per nursing staff. The instructions also include specific and strict return/GO TO THE ER as well as f/u information. All questions have been answered, and the patient deny any further questions with discharge and discharge plan. Differential Diagnosis Differential diagnosis: Likely abscess of skin or subcutaneous tissue, cellulitis, insect bites and contact dermatitis Medical Records Attestation: I reviewed the patient's medical records. Discharge Plan Discharge Clinical Impression: Cellulitis, Insect bites Patient Disposition: Home Condition: Stable Instructions: Antibiotic Form, Cellulitis (ED), Insect Bite or Sting (ED) Additional Instructions: may continue topical medications, change to triamcinolone cream cool compresses or ice packs to the area. Follow-up with primary care physician if symptoms not improved in 1 week. If symptoms significantly worsen go to the emergency room for further evaluation. Patient Language: Russian Prescriptions: New triamcinolone acetonide 0.1 % cream 1 applic topical TID PRN (Reason: rash) Qty: 80 0RF sulfamethoxazole-trimethoprim [Bactrim DS] 800-160 mg tablet 1 tablet PO Q12H Qty: 14 0RF No Action ezetimibe 10 mg tablet 10 mg PO DAILY aspirin 81 mg Tablet 81 mg PO DAILY metoprolol succinate 25 mg tablet extended release 24 hr 50 mg PO Q12H rosuvastatin 40 mg tablet 40 mg PO HS Follow-up/Referrals: PHYSICIAN,ELECTRICIAN OUTSIDE [Primary Care Provider] - Time of Disposition: 09:43
== END 2024-10-06 09:44 | disposition home or self-care (01) ==
PROVIDERS: Emergency Provider Nurse Practitioner Family
DX: S90.861A Insect bite (nonvenomous), right foot, initial encounter (principal); L03.115 Cellulitis of right lower limb; Z87.891 Personal history of nicotine dependence; W57.XXXA Bitten or stung by nonvenomous insect and other nonvenomous arthropods, initial encounter
CPT/HCPCS: 99213; G0463

== ENCOUNTER 2024-12-24 08:16 | Outpatient (CLI) | payer OTHER, SELFPAY ==
--- NOTE | 2024-12-24 08:29 | ECG_ITS ---
Test Date: 2024-12-24 08:34:52 Measurements Intervals D[place] Rate: 54 P: 1 SD: 149 QRS: 62 QRSD: 93 T: 50 QT: 410 QTc: 391 Interpretive Statements SINUS BRADYCARDIA OTHERWISE NORMAL ELECTROCARDIOGRAM No previous ECG available for comparison Electronically Signed On 12-25-2024 15:35:57 CDT by Bob Jackson M.D.
--- OUTSIDE RECORDS SUMMARY | 2024-12-24 08:40 | XMS_ITS | Clinical Summary ---
Author Organization [facility] Address [address] [place] [id number] Care Team Providers Care Manager Company Name Role Phone Jose Luis Centeno MD Primary Care Provider Allergies Active Allergy Reactions Criticality Noted Date Comments Penicillins Unknown 01/08/2021 Medications acetaminophen (TYLENOL) 500 mg tablet Take 500 mg by mouth every 6 (six) hours as needed Active [place]'s wort 300 mg capsule Take 1 capsule [...] 12:06 PM CDT Height 180.3 cm (5' 11) 2021 12:06 PM CDT Body Mass Index 25.1 2021 12:06 PM CDT Plan of Treatment Not on file Insurance [employer] SIG [id number] Care Teams Manager Company Relationship Specialty Start Date End Date Jose Luis Centeno MD [address] [place] [address] PCP - General Internal Medicine 01/12/21
--- OUTSIDE RECORDS SUMMARY | 2024-12-24 08:40 | XMS_ITS | Encounter Summary ---
Author Organization [facility] Address [address] [place] [address] Care Team Providers Care Survey Manager Name Role Phone Jose Luis Centeno MD Primary Care Provider [phone] Hubert Rodriguez MD Unavailable [phone] Stephanie Thomas APRN PHOTOENGRAVING MACHINE OPERATOR/TENDER-C Unavailable Saige Castrejon MD Unavailable [phone] Encounter Details Date Type Department Care Team (Late Contact Info) Description 11/25/2022 Abstract [facility] [address] [place] [phone] Hubert Rodriguez MD [address] [place] [phone] Social History Tobacco Use Types Packs/Day Years [...] Sexual Orientation Straight 06/21/2021 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 Not on file Not on file documented as of this encounter Plan of Treatment Upcoming Encounters Date Type Department Care Team ([facility] Contact Info) Description 01/22/2025 10:00 AM CDT Office Visit [facility] [address] [place] [phone] Stephanie Thomas, DERRICK BOAT LEVER OPERATOR, PHOTOENGRAVING MACHINE OPERATOR/TENDER-C [address] [facility] [address] [place] [phone] documented as of this encounter Procedures Procedure [...] 400 RBC 5.11 4.20 - 5.80 10/27/2022 us Default History Genericprovider LAB-OUTSIDE/ABST RACTED Final Result * THYROXINE, FREE (FT4) (10/27/2022) FREE T4 1.0 0.8 - 1.8 10/27/2022 us Default History Genericprovider LABORATORY Final Result * TSH (OUTSIDE LAB) (10/27/2022) Pathologist [facility] TSH 1.24 0.40 - 4.50 10/27/2022 us Default History Genericprovider LAB-OUTSIDE/ABST RACTED Final Result * MAGNESIUM (10/27/2022) Pathologist [facility] MAGNESIUM 1.9 1.5 - 2.5 10/27/2022 us Default History Genericprovider LABORATORY Final Result * CMP (ABSTRACTED LAB) (10/27/2022) Pathologist [facility] SODIUM S/P/B 140 135 - 146 POTASSIUM [...] on filedocumented in this encounter Care Teams Survey Manager Relationship Specialty Start Date End Date Jose Luis Centeno MD [address] [place] [address] PCP - General INTERNAL MEDICINE 12/31/20 Hubert Rodriguez MD [address] [place] [address] Consulting Physician CARDIOVASCULAR DISEASE 12/31/20 Stephanie Thomas APRN, PHOTOENGRAVING MACHINE OPERATOR/TENDER-C [address] [facility] [address] [place] [address] NURSE PRACTITIONER 12/31/20 Saige Castrejon MD [address] [place], [place] [address] Consulting Physician INTERVENTIONAL CARDIOLOGY 10/15/24 documented as of this encounter
--- OUTSIDE RECORDS SUMMARY | 2024-12-24 08:40 | XMS_ITS | Encounter Summary ---
Author Organization [facility] Address [address] [place] [address] Care Team Providers Care Photography Sales Associate Name Role Phone Jose Luis Centeno MD Primary Care Provider [phone] Hubert Rodriguez MD Unavailable Stephanie Thomas APRN, MED SURG NURSE-C Unavailable Saige Castrejon MD Unavailable [phone] Encounter Details Date Type Department Care Team ([facility] Contact Info) Description 01/05/2021 Abstract [facility] [address] [place] [phone] Stephanie Thomas APRN, MED SURG NURSE-C [address] 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 No / Unsure 01/08/2021 1:46 PM CDT documented as of this encounter Plan of Treatment Upcoming Encounters Date Type Department Care Team ([facility] Contact Info) Description 01/22/2025 10:00 AM CDT Office Visit [facility] eld [address] [place] [phone] Stephanie Thomas APRN, MED SURG NURSE-C [address] [phone] documented as of this encounter Visit Diagnoses Not on filedocumented in this encounter Additional Health Concerns Infection Onset Date Last Indicated Resolved Time COVID-19 Rule Out 01/26/2021 01/26/2021 01/26/2021 7:34 PM CDT COVID-19 Rule Out 07/06/2021 07/06/2021 07/06/2021 8:02 PM CDT documented as of this encounter Care Teams Photography Sales Associate Relationship Specialty Start Date End Date Jose Luis Centeno MD [address] [place] [phone] PCP - General INTERNAL MEDICINE 12/31/20 Hubert Rodriguez MD [address] [place] [address] Consulting Physician CARDIOVASCULAR DISEASE 12/31/20 Stephanie Thomas APRN, MED SURG NURSE-C [address] [phone] NURSE PRACTITIONER 12/31/20 Saige Castrejon MD [address] [place], [place] [address] Consulting Physician INTERVENTIONAL CARDIOLOGY 10/15/24 documented as of this encounter
--- OUTSIDE RECORDS SUMMARY | 2024-12-24 08:40 | XMS_ITS | Patient Health Record ---
Author Organization [facility] Address [address] [place], [place] [address] Care Team Providers Care Airport Operations Supervisor Name Role Phone Randee Centeno Unavailable Unavailable NELLA MARTINA Unavailable [phone] Allergies Allergen (clinical drug ingredient) Drug/Non Drug Allergy documented on EMR Reaction Allergy Type Onset Date Status Penicillin Unknown Drug Allergy Active Reason For Referral No Information Medications Medication SIG (Take, Route, Frequency, Duration) Notes Start Date End Date Status Metoprolol Succinate 25 MG 1 capsule Ora lly Once a day Active Encounters Encounter Location Date Provider Diagnosis [address] [id number] 01/04/2024 MARTINA CARMEN Plantar fascial fibromatosis M72.2 ; Short Achilles tendon (acquired), left ankle M67.02 ; Localized edema R60.0 and Pain in left foot M79.672 Assessments Encounter Date Diagnosis (ICD Code) Assessment Notes Treatment Notes Treatment Clinical Notes Section Notes 01/04/2024 Short Achilles tendon (acquired), left ankle [...] and effect. All questions were answered. 01/04/2024 Localized edema (ICD-10 - R60.0) 01/04/2024 Pain in left foot (ICD-10 - M79.672) Plan Of Treatment No Information Insurance Providers Payer Name Payer Address Payer Phone Subscriber Number Group Number Insured Name Patient Relationship to Insured Coverage Start Date Coverage End Date [facility] [address] ROLANDO Cruz [phone] [id number] Hubert Guaman Self - patient is the insured Medical (General) History Medical History History ICD Code acid reflux Pneumonia Back Trouble heart/disease/failure Surgical History Surgery Date(Month/Year) spinal fusion Hernia heart stents
--- OUTSIDE RECORDS SUMMARY | 2024-12-24 08:40 | XMS_ITS | Clinical Summary ---
Author Organization [facility] Address [address] [place] [address] Care Team Providers Care Gluing Pressman Name Role Phone Jose Luis Centeno MD Primary Care Provider [phone] Aram Pepper APRN, NP-C Unavailable Saige Castrejon MD Unavailable [phone] Allergies Active Allergy Reactions Criticality Noted Date Comments Penicillins Unknown 01/08/2021 Medications triamcinolone 0.1 % cream see administration instructions. Apply a thin layer to the affected area(s) by topical route 2 times per day 1 Active aspirin EC (ECOTRIN) 81 MG tablet Take 1 tablet (81 mg total) by mouth daily. Active St Nixon Wort 300 MG Cap Take 1 capsule by mouth daily. Active rosuvastatin (CRESTOR) 40 MG tablet Take 1 tablet (40 mg total) by mouth daily. 4 Active nitroglycerin (NITROSTAT) 0.[address] 1 tablet (0.4 mg total) under the tongue every 5 (five) minutes as needed for Chest Pain. 25 tablet 1 4 Active ezetimibe (ZETIA) 10 MG tablet Take 1 tablet (10 mg total) by mouth daily. 5 Active metoprolol succinate ER (TOPROL-XL) 50 MG 24 hr tablet Take 1 tablet (50 mg total) by mouth daily. 90 tablet 3 5 Active Active Problems Problem Noted Date Diagnosed Date S/P coronary artery stent placement 02/08/2021 Coronary artery disease invo lving ewiiaapaayp coronary artery of ewiiaapaayp heart 01/29/2021 Chest pain, unspecified type 01/08/2021 Family history of coronary artery disease 2020 Ventricular ectopy 01/08/2021 Palpitations 01/08/2021 Hyperlipidemia, unspecified hyperlipidemia type 01/08/2021 Encounters Date Type Department Care Team Description 11/27/2024 Abstract [facility] [address] [place] [address] Aram Pepper APRN, CONCRETE BATCHING PLANT OPERATOR-C 11/18/2024 Telephone [facility] [address] [place] [address] Aram Pepper APRN, CONCRETE BATCHING PLANT OPERATOR-C Follow Up Call 11/05/2024 Telephone [facility] [address] [place] [address] Aram Pepper APRN, CONCRETE BATCHING PLANT OPERATOR-C Surgical Clearance (Form) 10/31/2024 Results Follow-Up [facility] [address] [place] [address] Aram Pepper APRN, CONCRETE BATCHING PLANT OPERATOR-C [facility] [address] [facility] 10/24/2024 Results Follow-Up [facility] ie [address] [place] [address] Aram Pepper APRN, CONCRETE BATCHING PLANT OPERATOR-C NM PHARM NUC STRESS TEST 1 DAY W TRACING 10/22/2024 8:10 AM CDT - 10/22/2024 11:59 PM CDT Hospital Encounter [facility] [address] [place], [place] [address] Aram Pepper APRN, CONCRETE BATCHING PLANT OPERATOR-C Discharge Disposition: Home or Self Care (Routine Discharge) 10/22/2024 8:09 AM CDT Hospital Encounter [facility] Cardiology [facility] [address] [place], [place] [phone] Aram Pepper APRN, CONCRETE BATCHING PLANT OPERATOR-C Discharge Disposition: Home or Self Care (Routine Discharge) 10/22/2024 Travel 10/15/2024 12:30 PM CDT Telephone [facility] [address] [place] [address] Aram Pepper, INÉS, CONCRETE BATCHING PLANT OPERATOR-C Holter Monitor 10/15/2024 11:30 AM CDT Office Visit [facility] [address] [place] [address] [phone] Aram Pepper, PLANT MAINTENANCE ENGINEER, CONCRETE BATCHING PLANT OPERATOR-C Follow Up; Chest Pain (Palpitations) 10/15/2024 Telephone [facility] ie [address] [place] [address] Aram Pepper, PLANT MAINTENANCE ENGINEER, CONCRETE BATCHING PLANT OPERATOR-C Lab Results 10/15/2024 Telephone [facility] [address] [place] [address] Aram Pepper, INÉS, CONCRETE BATCHING PLANT OPERATOR-C Schedule Test 10/15/2024 Travel 10/11/2024 Telephone [facility] ie [address] [place] [address] Aram Pepper, INÉS, CONCRETE BATCHING PLANT OPERATOR-C Results 10/11/2024 Telephone [facility] BUSINESS OFFICE [address] [place] [address] Abstract, Doc Pccl Lab Results 10/10/2024 Telephone [facility] [address] [place] [address] Aram Pepper, INÉS, CONCRETE BATCHING PLANT OPERATOR-C Follow Up Call 10/09/2024 Orders Only [facility] [address] [place] [address] Aram Pepper, INÉS, CONCRETE BATCHING PLANT OPERATOR-C 10/09/2024 Telephone [facility] [address] [place] [address] [phone] Aram Pepper APRN, CONCRETE BATCHING PLANT OPERATOR-C Consult 10/08/2024 Scan 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 file Not on file Last Filed Vital Signs Vital Sign Reading Time Taken Comments Blood Pressure 122/68 10/15/2024 11:22 AM CDT Pulse 65 10/15/2024 11:22 AM CDT Temperature 36.2 C (97.2 F) 07/09/2021 7:56 AM CDT Respiratory Rate 18 10/15/2024 11:22 AM CDT Oxygen Saturation 97% 10/15/2024 11:22 AM CDT Inhaled Oxygen Concentration - - Weight 83.5 kg (184 lb) 10/22/2024 8:36 AM CDT Height 177.8 cm (5' 10) 10/22/2024 8:36 AM CDT Body Mass Index 26.4 10/22/2024 8:36 AM CDT Plan of Treatment Upcoming Encounters Date Type Department Care Team ([facility] Contact Info) Description 01/22/2025 10:00 AM CDT Office Visit [facility] el[facility] [address] [place] [address] Aram Pepper APRN, CONCRETE BATCHING PLANT OPERATOR-C [address] [facility] [address] [place] [address] Health Maintenance Due Date Last Done Comments Colorectal Cancer Screening Colonoscopy (10 Years) 1965 Annual Physical 01/13/1968 Hepatitis C 1983 Pneumococcal Vaccine: 50+ Ye ars (1 of 2 - PCV) 01/13/1984 Zoster Vaccines (1 of 2) 2015 COVID-19 Vaccine (1 - 2023-2 5 season) 2024 DTaP, Tdap and Td Vaccines ( 2 - Td or Tdap) 01/08/2032 01/07/2022 Meningococcal B Vaccine Aged Out No l onger eligible based on patient's age to complete this topic Meningococcal Vaccine Aged Out No obdulia jhony eligible based on patient's age to complete this topic RSV Immunizations Under 20 Months Aged Out No longer eligible based on patient's age to complete this topic Medical Devices Implanted Type Area Barber Apprentice Device Identifier Shelf Expiration Date Model / Serial / Lot Cv Synergy 3.5mm X 24mm Leroy Mid Lad- 1 Implanted: by Pravin Schumacher MD (Quantity not on file) Stent Coronary LAD [email or web address] 08/25/2022 [id number] / / [id number] Procedures Procedure Name Priority Date/Time Associated Diagnosis Comments LIPID PANEL Routine 11/25/2024 CMP (ABSTRACTED LAB) Routine 11/25/2024 CK (CPK) Routine 11/25/2024 TSH (OUTSIDE LAB) Routine 11/25/2024 CBC, AUTO, NO DIFF Routine 11/25/2024 MOBILE CONTINUOUS TELEMETRY Routine 10/25/2024 3:25 PM CDT Palpitations NM PHARM NUC STRESS TEST 1DAY W TRACING Routine 10/22/2024 9:59 AM CDT Coronary artery disease involving ewiiaapaayp coronary artery of ewiiaapaayp heart with angina pectoris S/P coronary artery stent placement Difficulty walking Shortness of breath CARDIOLOGY STRESS TEST ONLY, EXERCISE Routine 10/22/2024 8:38 AM CDT S/P coronary artery stent placement Coronary artery disease involving ewiiaapaayp coronary artery of ewiiaapaayp heart SOB (shortness of breath) Difficulty walking ECG GENERIC (SCAN ORDER) Routine 10/08/2024 12:00 AM CDT CBC (OUTSIDE LAB) Routine 10/08/2024 CMP (ABSTRACTED LAB) Routine 10/08/2024 from Last 3 Months Results * CMP (ABSTRACTED LAB) (11/25/2024) Only the most recent of2 resultswithin the time period is included. Pathologist [facility] SODIUM S/P/B 140 POTASSIUM S/P/B 4.4 CHLORIDE S/P/B 103 CO2 29 BUN 16 CREATININE S/P/B 1.04 0.7 - 1.3 EGFR NON-AFR. AMER. 83 <=90 CALCIUM S/P/B 9.7 TOTAL PROTEIN S/P/B 6.8 ALBUMIN S/P/B 4.5 3.5 - 5.0 AST 30 ALT 33 ALKALINE PHOSPHATASE S/P/B 49 BILIRUBIN TOTAL S/P/B 0.8 11/25/2024 us Default History Genericprovider LAB-OUTSIDE/ABST RACTED Final Result * TSH (OUTSIDE LAB) (11/25/2024) Pathologist [facility] TSH 1.25 FREE T4 1.2 11/25/2024 us Default History Genericprovider LAB-OUTSIDE/ABST RACTED Final Result * LIPID PANEL (11/25/2024) Pathologist [facility] CHOLESTEROL 141 HDL 75 TRIGLYCERIDES 71 NON HDL CHOLESTEROL 66 CHOL/HDL RATIO 1.9 LDL (CALCULATED) 51 11/25/2024 us Default History Genericprovider LABORATORY Final Result * CBC, AUTO, NO DIFF (11/25/2024) WBC 4.4 RBC 5.01 HGB 14.7 HCT 44.6 MCV 89.0 MCH 29.3 MCHC 33.0 RDW 11.8 PLT 187 MPV 10.4 11/25/2024 us Default History Genericprovider LABORATORY Final Result * CK (CPK) (11/25/2024) CPK 140 11/25/2024 us Default History Genericprovider LABORATORY Final Result * CLINIC - [address] MCT - Today (10/25/2024 3:25 PM CDT) Alfonso [facility]OM CARDIOVASCULAR - 10/25/2024 3:25 PM CDT INDICATION: Palpitations FINDINGS: Patient underwent continuous cardiac monitoring using the BodyGuardian device for a total of 7 days. Only 94% of the monitored period produced readable data. Baseline Rhythm * The baseline rhythm was Sinus Rhythm with heart rates ranged between 52 and 150 beats per minute, with average rate of 73 beats per minute. Normal sinus node function noted. A-V Conduction * No Second Degree AV Block Type II. * No Third Degree AV Block. * No Pauses. Supraventricular Arrhythmia * There were 8,420 Supraventricular Ectopic beats with a burden of 1%. * 1 Supraventricular Tachycardia events - the longest episode was 1.9s on 10/19 20:56, and the fastest episode was 112 BPM on 10/19 20:56. Ventricular Arrhythmia * There were 117 Ventricular Ectopic beats with a burden of <1%. * No Ventricular Tachycardia. Atrial Fibrillation * No Atrial Fibrillation. Patient Triggered Events * 3 patient triggered events, no symptoms were specified; all of which correlate with sinus tachycardia at 102 bpm. IMPRESSION: No significant atrial or ventricular arrhythmias were noted in this monitoring. Signed by: Juan Cantrell MD us Aram Pepper APRN, CONCRETE BATCHING PLANT OPERATOR-C CV VASCULAR ORDERABLE S Final Result [facility] * NM PHARM NUC STRESS TEST 1 DAY W TRACING (10/22/2024 9:59 AM CDT) Anatomical Region Laterality Modality Cardiac Nuclear Medicine 10/22/2024 9:00 AM CDT Narrative 10/24/2024 5:19 PM CDT MYOCARDIAL PERFUSION SCAN Pat.Name: RAVEN BERMUDEZ Pat.ID: [id number] .Date: 10/22/2024 Refer.MD: ARAM PEPPER Exam Time: 9:00:00 AM Study Type:NC Ht Muscle Image SPECT Multi Nuclear Height: 70 in Weight: 184 lb BSA: 2.01 m2 Age: 9 1965,59Y Sex: M Sonogrphr: CRISTINA Benz Pat. 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 Left ventricular EF is 70 %. Small fixed perfusion defect in the inferior apex. No ischemia. Inferior attenuation artifact. ++++++++++++++++++++++++++++++++++++ FINDINGS: ++++++++++++++++++++++++++++++++++++ Stress Findings: Negative electrocardiographic portion of adenosine stress test. The patient had no complaints of chest pain. Transient Ischemic Dilatation: The TID is 1.03. Gated SPECT Results: Left ventricular EF is 70 %. Study Quality/Artifacts: The study quality is good. ++++++++++++++++++++++++++++++++++++ STRESS: ++++++++++++++++++++++++++++++++++++ Baseline Vital Signs: Baseline ECG: Early repolarization Baseline Rhythm: Normal sinus rhythm HR: 68 bmp Rest BP: 153/91 Adenosine Peak Dose: 46.8 mg Duration: 06:01 min:sec Stress Test Results: Target HR: [address]: 0 mm Symptoms and Complications: Arrhythmias: AV nodel block Reason for Stopping Test: Protocol completed Stress Induced Symptoms: Dizziness, Flushing, Shortness of breath, Lightheadedness. Complications: None ECG Findings: No ischemic S-T changes occurred with stress <Electronic Signature> 10/24/2024 05:19 PM Saige Castrejon M.D. Procedure Note Saige Castrejon MD - 10/24/2024 MYOCARDIAL PERFUSION SCAN Pat.Name: RAVEN BERMUDEZ Johana.ID: [id number] St.Date: 10/22/2024 Refer.MD: ARAM PEPPER Exam Time: 9:00:00 AM Study Type:NC Ht Muscle Image SPECT Multi Nuclear Height: 70 in Weight: 184 lb BSA: 2.01 m2 Age: 9 1965,59Y Sex: M Sonogrphr: CRISTINA Benz Pat. 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 Left ventricular EF is 70 %. Small fixed perfusion defect in the inferior apex. No ischemia. Inferior attenuation artifact. ++++++++++++++++++++++++++++++++++++ FINDINGS: ++++++++++++++++++++++++++++++++++++ Stress Findings: Negative electrocardiographic portion of adenosine stress test. The patient had no complaints of chest pain. Transient Ischemic Dilatation: The TID is 1.03. Gated SPECT Results: Left ventricular EF is 70 %. Study Quality/Artifacts: The study quality is good. ++++++++++++++++++++++++++++++++++++ STRESS: ++++++++++++++++++++++++++++++++++++ Baseline Vital Signs: Baseline ECG: Early repolarization Baseline Rhythm: Normal sinus rhythm HR: 68 bmp Rest BP: 153/91 Adenosine Peak Dose: 46.8 mg Duration: 06:01 min:sec Stress Test Results: Target HR: [address]: 0 mm Symptoms and Complications: Arrhythmias: AV nodel block Reason for Stopping Test: Protocol completed Stress Induced Symptoms: Dizziness, Flushing, Shortness of breath, Lightheadedness. Complications: None ECG Findings: No ischemic S-T changes occurred with stress <Electronic Signature> 10/24/2024 05:19 PM Saige Castrejon M.D. Aram Pepper APRN, CONCRETE BATCHING PLANT OPERATOR-C NUC MED Final Result * CBC (OUTSIDE LAB) (10/08/2024) WBC 4.6 3.8 - 10.8 RBC 4.70 4.20 - 5.80 HGB 13.6 13.2 - 17.1 HCT 41.5 38.5 - 50.0 MCV 88.3 80.0 - 100.0 MCH 28.9 27.0 - 33.0 MCHC 32.8 32.0 - 36.0 RDW 12.0 11.0 - 15.0 PLT 174 140 - 400 MPV 10.6 7.5 - 12.5 10/08/2024 us Doc Pccl Abstract LAB-OUTSIDE/ABSTRACTED Final R esult * ECG (10/08/2024 12:00 AM CDT) 10/08/2024 us Doc Pccl Scanned SCANNING Final Result [facility] ONBASE from Last 3 Months [facility] [facility] Advance Directives * Full Code (Latest Code Status on File) Date Activated Date Inactivated Comments 07/09/2021 1:20 PM 07/09/2021 5:07 PM * Full Code Date Activated Date Inactivated Comments 01/29/2021 9:51 AM 01/29/2021 2:38 PM Care Teams Gluing Pressman Relationship Specialty Start Date End Date Jos eLuis Centeno MD [address] [place] [phone] PCP - General INTERNAL MEDICINE 12/31/20 Aram Pepper APRN, CONCRETE BATCHING PLANT OPERATOR-C [address] [facility] [address] [phone] NURSE PRACTITIONER 12/31/20 Saige Castrejon MD [address] [place] [address] Consulting Physician INTERVENTIONAL CARDIOLOGY 10/15/24
== END 2024-12-24 08:17 | disposition home or self-care (01) ==
PROVIDERS: Visit Provider Orthopaedic Surgery
DX: R00.1 Bradycardia, unspecified (principal); I25.10 Atherosclerotic heart disease of native coronary artery without angina pectoris
CPT/HCPCS: 93005

== ENCOUNTER 2024-12-26 01:07 | Day surgery (SDC) | payer OTHER, SELFPAY ==
[2024-12-19 13:25] VITALS: BMI 25.8
--- NOTE | 2024-12-19 13:34 | PC.NURSE ---
Report to the Outpatient Waiting Room, entrance under the green pavilion located off [facility], at time _1100_ on date _[id number]_. Planned Procedure Time: _1pm_.? Time changes happen often and if your time is changed the preop area will call you the afternoon before. - You and your visitor will be asked to self-screen and do not enter if you have any COVID symptoms. Please call surgeon if you need to reschedule. - A mask is optional within the hospital at this time. Patients may have clear liquids (water, carbonated beverages, clear teas, apple juice) until 3 hours prior to surgery with a maximum of 20 ounces. - No food from midnight until time of surgery and no smoking, or chewing tobacco (or any form of nicotine). No chewing gum, candy or mints. Take only the following medications with a SIP of water on the morning of surgery: __Metoprolol____ DO NOT STOP ANY OF YOUR OTHER PRESCRIPTION MEDICATIONS PRIOR TO SURGERY EXCEPT THE FOLLOWING Hold all vitamins and supplements for 3 days per anesthesiologist. Medications to discontinue per physician __Aspirin Date to take last akvo__[id number]____ Please no make-up, nail palestinian, hairspray, perfume, deodorant, or body powder the day of surgery.? No jewelry (including any body piercings) or valuables the day of surgery, leave them at home.? Please take a shower or bath the night before, or the morning of, surgery with an antibacterial soap.? Wear comfortable, loose fitting clothing.? - Jewelry must be removed prior to entering the operating room.? Rings and piercings that are not removed may be cut off. - The hospital will not accept responsibility for valuables.? - Please leave all valuables, including medications, at home the day of surgery. If you are going home after surgery, a licensed limb driver must drive you home.? - NO public transportation without another adult if you receive anesthesia. - We recommend that an adult stay with you for 24 hours following discharge. - We also recommend that you do not drive, make important decision, drink alcoholic beverages, or take any drugs that were not prescribed by your health care provider for at least 24 hours after your discharge time. Follow any additional instructions given to you from your surgeon. Telephone instructions given to __Bob___and asked if any additional questions and then verbalized understanding. Patient advised to call surgeon office or pre surgery nurse liaison [phone] if any additional questions.
[2024-12-26] VITALS (10 sets, daily range): BP systolic 80–129; BP diastolic 48–84; PULSE 51–68; RESP 10–14; TEMP 36.1–36.6; O2SAT 97–100; BMI 25.4
--- OUTSIDE RECORDS SUMMARY | 2024-12-26 01:12 | XMS_ITS | Patient Health Record ---
Author Organization [facility] Address [address] [place], [place] [id number] Care Team Providers Care Teleprinter Installer Name Role Phone Randee Centeno Unavailable Unavailable NELLA MARTINA Unavailable [phone] Allergies Allergen (clinical drug ingredient) Drug/Non Drug Allergy documented on EMR Reaction Allergy Type Onset Date Status Penicillin Unknown Drug Allergy Active Reason For Referral No Information Medications Medication SIG (Take, Route, Frequency, Duration) Notes Start Date End Date Status Metoprolol Succinate 25 MG 1 capsule Ora lly Once a day Active Encounters Encounter Location Date Provider Diagnosis [address] [id number] 01/04/2024 MARTINA CARMEN Plantar fascial fibromatosis M72.2 [...] Insured Coverage Start Date Coverage End Date [facility] [id number] ROLANDO Cruz [phone] [id number] Hubert Guaman Self - patient is the insured Medical (General) History Medical History History ICD Code acid reflux Pneumonia Back Trouble heart/disease/failure Surgical History Surgery Date(Month/Year) spinal fusion Hernia heart stents
--- OUTSIDE RECORDS SUMMARY | 2024-12-26 01:12 | XMS_ITS | Clinical Summary ---
Author Organization [facility] Address [address] [place] [address] Care Team Providers Care Administrative Job Titles Name Role Phone Jose Luis Centeno MD Primary Care Provider [phone] Allergies Active Allergy Reactions Criticality Noted Date Comments Penicillins Unknown 01/08/2021 Medications acetaminophen (TYLENOL) 500 mg tablet Take 500 mg by mouth every 6 (six) hours as needed Active [place]'s wort 300 mg capsule Take 1 capsule [...] Treatment Not on file Insurance [employer] SIG [id number] Care Teams Administrative Job Titles Relationship Specialty Start Date End Date Jose Luis Centeno MD [address] [place] [address] PCP - General Internal Medicine 01/12/21
--- OUTSIDE RECORDS SUMMARY | 2024-12-26 01:12 | XMS_ITS | Encounter Summary ---
Author Organization [facility] Address [facility] [place] [address] Care Team Providers Care Lithographic Retoucher Apprentice Name Role Phone Jose Luis Centeno MD Primary Care Provider [phone] Hubert Rodriguez MD Unavailable [phone] Stephanie Thomas APRN, LATHE SET UP OPERATOR-C Unavailable Saige Castrejon MD Unavailable [phone] Encounter Details Date Type Department Care Team ([facility] Contact Info) Description 01/05/2021 Abstract [facility] [address] [place] [phone] Stephanie Thomas APRN, LATHE SET UP OPERATOR-C [address] [facility] [address] [place] [phone] Social History Tobacco Use Types Packs/Day Years Used Date Smoking Tobacco: Never Assessed Sex and Gender Information Value Date Recorded Sex Assigned at Not on file Legal Sex Male 1:36 PM CDT Gender Identity Not on file Sexual Orientation Straight 06/21/2021 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 No / Unsure 01/08/2021 1:46 PM CDT documented as of this encounter Plan of Treatment Upcoming Encounters Date Type Department Care Team ([facility] Contact Info) Description 01/22/2025 10:00 AM CDT Office Visit [facility] eld [address] [place] [phone] Stephanie Thomas APRN, LATHE SET UP OPERATOR-C [address] [phone] documented as of this encounter Visit Diagnoses Not on filedocumented in this encounter Additional Health Concerns Infection Onset Date Last Indicated Resolved Time COVID-19 Rule Out 01/26/2021 01/26/2021 01/26/2021 7:34 PM CDT COVID-19 Rule Out 07/06/2021 07/06/2021 07/06/2021 8:02 PM CDT documented as of this encounter Care Teams Lithographic Retoucher Apprentice Relationship Specialty Start Date End Date Jose Luis Centeno MD [address] [place] [phone] PCP - General INTERNAL MEDICINE 12/31/20 Hubert Rodriguez MD [address] [place] [phone] Consulting Physician CARDIOVASCULAR DISEASE 12/31/20 Stephanie Thomas APRN, LATHE SET UP OPERATOR-C [address] [phone] NURSE PRACTITIONER 12/31/20 Saige Castrejon MD [address] [place], [place] [address] Consulting Physician INTERVENTIONAL CARDIOLOGY 10/15/24 documented as of this encounter
--- OUTSIDE RECORDS SUMMARY | 2024-12-26 01:12 | XMS_ITS | Encounter Summary ---
Author Organization [facility] Address [address] [place] [address] Care Team Providers Care Housekeeping Department Worker Name Role Phone Jose Luis Centeno MD Primary Care Provider [phone] Hubert Rodriguez MD Unavailable [phone] Stephanie Thomas APRN BOOKKEEPERS SUPERVISOR-C Unavailable Saige Castrejon MD Unavailable [phone] Encounter Details Date Type Department Care Team (Late Contact Info) Description 11/25/2022 Abstract [facility] [address] [place] [phone] Hubert Rodriguez MD [address] [place] [phone] Social History Tobacco Use Types Packs/Day Years [...] Sexual Orientation Straight 06/21/2021 6: 51 AM AREA CAPTAIN 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 Not on file Not on file documented as of this encounter Plan of Treatment Upcoming Encounters Date Type Department Care Team ([facility] Contact Info) Description 01/22/2025 10:00 AM CDT Office Visit [facility] eld [address] [place] [phone] Stephanie Thomas, SHINGLE INSPECTOR, BOOKKEEPERS SUPERVISOR-C [address] [facility] [address] [place] [phone] documented as of this encounter Procedures Procedure Name Priority Date/Time Associated Diagnosis Comments CMP (ABSTRACTED LAB) Routine 10/27/2022 TSH (OUTSIDE LAB) Routine 10/27/2022 CBC (OUTSIDE LAB) Routine 10/27/2022 LIPID PANEL Routine 10/27/2022 THYROXINE, FREE (FT4) Routine 10/27/2022 MAGNESIUM Routine 10/27/2022 documented in this encounter Results * LIPID PANEL (10/27/2022) Pathologist [facility] CHOLESTEROL 180 <200 HDL 58 >or=40 TRIGLYCERIDES 58 <150 CHOL/HDL RATIO 3.1 <5.0 LDL (CALCULATED) 108 10/27/2022 us Default History Genericprovider LABORATORY Final Result * CBC (OUTSIDE LAB) (10/27/2022) Pathologist [facility] WBC 5.2 3.8 - 10.8 HGB 14.9 13.2 - 17.1 HCT 43.4 38.5 - 50.0 PLT 220 140 - 400 RBC 5.11 4.20 - 5.80 10/27/2022 us Default History Genericprovider LAB-OUTSIDE/ABST RACTED Final Result * THYROXINE, FREE (FT4) (10/27/2022) FREE T4 1.0 0.8 - 1.8 10/27/2022 us Default History Genericprovider LABORATORY Final Result * TSH (OUTSIDE LAB) (10/27/2022) Pathologist [facility] TSH 1.24 0.40 - 4.50 10/27/2022 us Default History Genericprovider LAB-OUTSIDE/ABST RACTED Final Result * MAGNESIUM (10/27/2022) Pathologist [facility] MAGNESIUM 1.9 1.5 - 2.5 10/27/2022 us Default History Genericprovider LABORATORY Final Result * CMP (ABSTRACTED LAB) (10/27/2022) Pathologist [facility] SODIUM S/P/B 140 135 - 146 POTASSIUM [...] on filedocumented in this encounter Care Teams Housekeeping Department Worker Relationship Specialty Start Date End Date Jose Luis Centeno MD [address] [place] [address] PCP - General INTERNAL MEDICINE 12/31/20 Hubert Rodriguez MD [address] [place] [address] Consulting Physician CARDIOVASCULAR DISEASE 12/31/20 Stephanie Thomas APRN, BOOKKEEPERS SUPERVISOR-C [address] [facility] [address] [place] [address] NURSE PRACTITIONER 12/31/20 Saige Castrejon MD [address] [place], [place] [phone] Consulting Physician INTERVENTIONAL CARDIOLOGY 10/15/24 documented as of this encounter
--- OUTSIDE RECORDS SUMMARY | 2024-12-26 01:12 | XMS_ITS | Clinical Summary ---
Author Organization [facility] Address [address] [place] [address] Care Team Providers Care Certified Phlebotomy Technician Name Role Phone Unavailable Primary Care Provider Unavailabl e Source Comments [facility],non-owned Affiliates and Associated Physician Practices is amultiple site organization consisting of ambulatory clinics and hospital sitesin [place], [place] and [place]. This disclosure is being madepursuant to the Care Everywhere program and may not contain all information available regarding this patient. Last updated 18.[facility] Social History Tobacco Use Types Packs/Day Years Used Date Smoking Tobacco: Never Assessed Sex and Gender Information Value Date Recorded Sex Assigned at Not on file Legal Sex Male 6:18 AM BLINDMAKER Gender Identity Not on file Sexual Orientation [...] 2015 ZOSTER VACCINE (1 of 2) 2015 DEPRESSION SCREENING 04/17/2024 COVID-19 VACCINE (1 - 2023-2 5 season) 2024 INFLUENZA VACCINE (#1) 2024 HIB VACCINE Aged Out No longer eligi [...]
--- OUTSIDE RECORDS SUMMARY | 2024-12-26 01:12 | XMS_ITS | Clinical Summary ---
Author Organization [facility] Address [address] [place] [address] Care Team Providers Care Bakelite Molder Name Role Phone Jose Luis Centeno MD Primary Care Provider [phone] Aram Pepper APRN, NP-C Unavailable Saige Castrejon MD Unavailable [phone] Allergies Active Allergy Reactions Criticality Noted Date [...] placement 02/08/2021 Coronary artery disease invo lving cahuilla coronary artery of cahuilla heart 01/29/2021 Chest pain, unspecified type 01/08/2021 Family history of coronary artery disease 2020 Ventricular ectopy 01/08/2021 Palpitations 01/08/2021 Hyperlipidemia, unspecified hyperlipidemia type 01/08/2021 Encounters Date Type Department Care Team Description 11/27/2024 Abstract [facility] [address] [place] [address] Aram Pepper APRN, ASSOCIATE MARKETING MANAGER-C 11/18/2024 Telephone [facility] [address] [place] [address] Aram Pepper APRN, ASSOCIATE MARKETING MANAGER-C Follow Up Call 11/05/2024 Telephone [facility] [address] [place] [address] Aram Pepper APRN, ASSOCIATE MARKETING MANAGER-C Surgical Clearance (Form) 10/31/2024 Results Follow-Up [facility] [address] [place] [address] Aram Pepper APRN, ASSOCIATE MARKETING MANAGER-C [facility] [address] [facility] 10/24/2024 Results Follow-Up [facility] ie [address] [place] [address] Aram Pepper APRN, ASSOCIATE MARKETING MANAGER-C NM PHARM NUC STRESS TEST 1 DAY W TRACING 10/22/2024 8:10 AM CDT - 10/22/2024 11:59 PM CDT Hospital Encounter [facility] [address] [place], [place] [phone] Aram Pepper APRN, ASSOCIATE MARKETING MANAGER-C Discharge Disposition: Home or Self Care (Routine Discharge) 10/22/2024 8:09 AM CDT Hospital Encounter [facility] [address] [place], [place] [phone] Aram Pepper APRN, ASSOCIATE MARKETING MANAGER-C Discharge Disposition: Home or Self Care (Routine Discharge) 10/22/2024 Travel 10/15/2024 12:30 PM CDT Telephone [facility] [address] [place] [address] Aram Pepper, INÉS, ASSOCIATE MARKETING MANAGER-C Holter Monitor 10/15/2024 11:30 AM CDT Office Visit [facility] [address] [place] [address] [phone] Aram Pepper, DRAPERY CUTTER, ASSOCIATE MARKETING MANAGER-C Follow Up; Chest Pain (Palpitations) 10/15/2024 Telephone [facility] ie [address] [place] [address] Aram Pepper, DRAPERY CUTTER, ASSOCIATE MARKETING MANAGER-C Lab Results 10/15/2024 Telephone [facility] [address] [place] [address] Aram Pepper, INÉS, ASSOCIATE MARKETING MANAGER-C Schedule Test 10/15/2024 Travel 10/11/2024 Telephone [facility] ie [address] [place] [address] Aram Pepper, INÉS, ASSOCIATE MARKETING MANAGER-C Results 10/11/2024 [facility]phone [facility] [address] [place] [address] Abstract, Doc Pccl Lab Results 10/10/2024 Telephone [facility] [address] [place] [address] Aram Pepper, INÉS, ASSOCIATE MARKETING MANAGER-C Follow Up Call 10/09/2024 Orders Only [facility] [address] [place] [address] Aram Pepper, INÉS, ASSOCIATE MARKETING MANAGER-C 10/09/2024 Telephone [facility] [address] [place] [address] [phone] Aram Pepper APRN, ASSOCIATE MARKETING MANAGER-C Consult 10/08/2024 Scan [facility] [address] [place] [phone] Scanned, Doc Pccl ECG (SCAN) from Last [...] Sexual Orientation Straight 06/21/2021 6: 51 AM METAL RECLAMATION KETTLE TENDER 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 Not on file [...] Upcoming Encounters Date Type Department Care Team ([facility] Contact Info) Description 01/22/2025 10:00 AM CDT Office Visit [facility] eld [address] [place] [address] Aram Pepper APRN, ASSOCIATE MARKETING MANAGER-C [address] [facility] [address] [place] [address] Health Maintenance Due Date Last Done Comments [...] this topic Medical Devices Implanted Type Area Materials Planner/Production Planner Device Identifier Shelf Expiration Date Model / Serial / Lot Cv Synergy 3.5mm X 24mm Leroy Mid Lad- 1 Implanted: by Pravin Schumacher MD (Quantity not on file) Stent Coronary LAD [employer] 08/25/2022 [id number] / / [id number] Procedures Procedure Name Priority Date/Time Associated Diagnosis Comments LIPID PANEL Routine 11/25/2024 CMP (ABSTRACTED LAB) Routine 11/25/2024 CK (CPK) Routine 11/25/2024 TSH (OUTSIDE LAB) Routine 11/25/2024 CBC, AUTO, NO DIFF Routine 11/25/2024 MOBILE CONTINUOUS TELEMETRY Routine 10/25/2024 3:25 PM CDT Palpitations NM PHARM NUC STRESS TEST 1DAY W TRACING Routine 10/22/2024 9:59 AM CDT 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 Pathologist [facility] SODIUM S/P/B 140 POTASSIUM S/P/B 4.4 CHLORIDE [...] Result * TSH (OUTSIDE LAB) (11/25/2024) Pathologist [facility] TSH 1.25 FREE T4 1.2 11/25/2024 us Default History Genericprovider LAB-OUTSIDE/ABST RACTED Final Result * LIPID PANEL (11/25/2024) Pathologist [facility] CHOLESTEROL 141 HDL 75 TRIGLYCERIDES 71 NON [...] Genericprovider LABORATORY Final Result * CLINIC - [address] MCT - Today (10/25/2024 3:25 PM CDT) [...] Juan Cantrell MD us Aram Pepper APRN, ASSOCIATE MARKETING MANAGER-C CV VASCULAR ORDERABLE S Final Result [facility] * NM PHARM NUC STRESS TEST 1 DAY W TRACING (10/22/2024 9:59 AM CDT) Anatomical Region Laterality Modality Cardiac Nuclear Medicine 10/22/2024 9:00 AM CDT Narrative 10/24/2024 5:19 PM CDT MYOCARDIAL PERFUSION SCAN Pat.Name: RAVEN BERMUDEZ Pat.ID: [id number] .Date: 10/22/2024 Refer.MD: ARAM PEPPER Exam Time: 9:00:00 AM Study Type:NC Ht Muscle Image SPECT Multi Nuclear Height: 70 in Weight: 184 lb BSA: 2.01 m2 Age: 9 1965,59Y Sex: M Sonogrphr: CRISTINA Benz Pat. 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 Aram Pepper APRN, ASSOCIATE MARKETING MANAGER-C NUC MED Final Result * CBC (OUTSIDE [...] us Doc Pccl Scanned SCANNING Final Result [facility] from Last 3 Months [facility] Advance Directives * Full Code (Latest Code Status on File) Date Activated Date Inactivated Comments 07/09/2021 1:20 PM 07/09/2021 5:07 PM * Full Code Date Activated Date Inactivated Comments 01/29/2021 9:51 AM 01/29/2021 2:38 PM Care Teams Bakelite Molder Relationship Specialty Start Date End Date Jose Luis Centeno MD [address] [place] [phone] PCP - General INTERNAL MEDICINE 12/31/20 Aram Pepper APRN, ASSOCIATE MARKETING MANAGER-C [address] [facility] [address] [phone] NURSE PRACTITIONER 12/31/20 Saige Castrejon MD [address] [place] [address] Consulting Physician INTERVENTIONAL CARDIOLOGY 10/15/24
--- NOTE | 2024-12-26 07:09 | WPDHPUPDATE1 ---
History and Physical Update Update Date/Time: 12/26/24 07:09 History and Physical has been reviewed, including an updated exam of the patient. There are NO changes in the patient's condition. Risks, benefits, and alternatives have been discussed and questions answered. Patient agrees to proceed with procedure.
[2024-12-26] MEDS: KETOROLAC 15 MG/ML VIAL (*BKC) IV PUSH (11:30)
[2024-12-26] MEDS: LACTATED RINGERS 1,000 ML 30 ML IV CONT (11:30)
[2024-12-26] MEDS: ACETAMINOPHEN 500 MG TABLET 1000 MG PO (11:30)
--- NOTE | 2024-12-26 12:47 | WPDANESEPPF ---
Anes - Initial Pre Proc Eval Procedure: Operation Date: 12/26/24 13:00 Proposed Procedures p Right Knee Arthroscopic Partial Medial Meniscectomy - Rodriguez Han MD Date/Time: 12/26/24 12:47 Surgeon: Rodriguez Han MD Pre Op Diagnosis: Rt Knee Medial Meniscus tear Patient Data Age: 59 Gender: M Height: 1.8 m Weight: 82.6 kg Last Vital Signs Temp 36.6 C 12/26/24 12:27 Pulse 57 L 12/26/24 12:27 BP 129/84 12/26/24 12:27 Pulse Ox 100 12/26/24 12:27 O2 Del Method Room Air 12/26/24 12:27 Allergies Allergy/AdvReac Type Severity Reaction Status Date / Time Penicillins Allergy Rash Verified 12/19/24 13:24 Home Medications ?Medication ?Instructions ?Recorded ?Confirmed ?Type aspirin 81 mg tablet 81 mg PO DAILY 12/05/23 12/19/24 History metoprolol succinate 25 mg 50 mg PO Q12H 12/05/23 12/19/24 History tablet,extended release 24 hr rosuvastatin 40 mg tablet 40 mg PO HS 12/05/23 12/19/24 History ezetimibe 10 mg tablet 10 mg PO DAILY 09/16/24 12/19/24 History lisinopril 10 mg tablet 10 mg PO DAILY 12/18/24 12/19/24 History Patricia's wort 300 mg capsule 300 mg PO DAILY 12/19/24 12/19/24 History multivitamin (Daily Multi-Vitamin 1 tablet PO DAILY 12/19/24 12/19/24 History tablet) hydrocodone 5 mg-acetaminophen 325 1 - 2 tablet PO Q4-6H PRN pain 7 12/26/24 Rx mg tablet days #30 tabs Patient hx anesthesia problems: none Family hx anesthesia problems: none Results Review: All pre-operative results and documents have been reviewed as part of the pre-operative evaluation. [facility] Past Medical History Medical History Heart disease Asthma Allergies Hyperlipidemia Surgical History Surgical History History of hernia surgery (~1995) Hx of heart artery stent (~2020) History of back surgery 1996 2000 2002 Family History Family History Mother Hypertension Cerebrovascular accident Father Hypertension Colon cancer Grandparent Heart disease Hypertension Cerebrovascular accident Social History Social History Smoking packs per day: 1.5 Smoking cigarettes per day: 30.0 Years smoked: 20 Smoking pack-years: 30.00 Smoking status: Former smoker Tobacco type: cigarettes Smoking end date: 12/20/99 Alcohol intake: never Substance use: never Substance use type: does not use Living arrangements: with family Spiritual care concerns: No Anes - Eval Final PreProcedure Day of Procedure 12/26/24 12:47 Patient weight: normal Heart: regular rate and rhythm Lungs: clear to auscultation Airway: Mallampati scale class II Neurological: alert and oriented Last oral intake: >/= 8 hours ASA classification: III Emergent: no Anesthetic plan: proceed Anesthesia type and monitoring: general LMA and standard monitoring Results Review: All pre-operative results and documents have been reviewed as part of the pre-operative evaluation. Informed Consent: The patient's anesthetic plan and its attendant risks and benefits were discussed with the patient/family/POA. Questions were solicited and answers provided to the satisfaction of the patient/family/POA.
[2024-12-26] MEDS: ceFAZolin 2 GM in SODIUM CHLORIDE 0.9% IV 50 ML 100 ML IVPB (12:51)
[2024-12-26] MEDS: BUPIVACAINE/EPINEPHRINE 0.5% 50 ML VIAL 20 ML INFILTRATE (13:23)
[2024-12-26] MEDS: oxyCODONE HCL (*CRX) 5 MG TAB IR PO (15:00)
--- NOTE | 2024-12-26 16:34 | W.PM.PROC2 ---
Procedure Note - Detailed Date of Procedure 12/26/24 Pre-op Diagnosis Rt Knee Medial Meniscus tear Post-op Diagnosis Same Procedure Performed Arthroscopic partial medial meniscectomy, right knee. Surgeon Rodriguez Han MD Anesthesia General Findings Extensive complex posterior horn tear. Diffuse chondrocalcinosis. Medial femur chondromalacia grade 2, medial tibia grade 1. Lateral femur chondromalacia grade 1, lateral tibia grade 1. Patellar grade 2, trochlea grade 3. Description of Procedure The patient was identified and the surgical site confirmed and signed in the preoperative holding area. Antibiotics were started per protocol, and the patient was brought to the operative room and transferred to the OR table. A general anesthetic was administered. Supine position with the operative lower extremity position in the leg eric after placement of a well padded tourniquet. The leg support was lowered and the contralateral limb was supported with a soft bolster. The knee was prepped and draped in the usual sterile fashion. A time-out was performed. The portal sites were marked and infiltrated with 0.5% Marcaine 20 mL. The limb was exsanguinated and the tourniquet inflated to 300 mL Hg. Standard inferolateral and inferomedial portals were established. Inflow was obtained with the saline pump. The camera was introduced. Diagnostic inspection of the joint was accomplished. The meniscus was debrided with the arthroscopic shaver and punches until stable. Gentle chondroplasty on the medial femur. The arthroscopic instruments were removed. The tourniquet released and wounds closed with subcutaneous 4-0 Monocryl absorbable suture. Steri strips and a sterile dressing were applied. A light elastic wrap was placed. The patient was extubated and brought to the recovery room in stable condition. Estimated Blood Loss 5 Drains No Complications No immediate complications Condition Stable Disposition PACU [facility] Billing Surgery - Charge Forward: Surgery Billing
== END 2024-12-26 15:40 | disposition home or self-care (01) ==
PROVIDERS: PCP Internal Medicine; Visit Provider Orthopaedic Surgery
PROC: (CPT 29870; principal; 2024-12-26 13:00)
DX: S83.231A Complex tear of medial meniscus, current injury, right knee, initial encounter (principal); M11.261 Other chondrocalcinosis, right knee; M94.261 Chondromalacia, right knee; M76.822 Posterior tibial tendinitis, left leg; E78.5 Hyperlipidemia, unspecified; J45.909 Unspecified asthma, uncomplicated; I25.10 Atherosclerotic heart disease of native coronary artery without angina pectoris; I51.9 Heart disease, unspecified; X50.0XXA Overexertion from strenuous movement or load, initial encounter; Z79.82 Long term (current) use of aspirin; Z79.891 Long term (current) use of opiate analgesic; Z98.890 Other specified postprocedural states; Z98.1 Arthrodesis status; Z95.5 Presence of coronary angioplasty implant and graft; Z87.891 Personal history of nicotine dependence; Z80.0 Family history of malignant neoplasm of digestive organs; Z82.49 Family history of ischemic heart disease and other diseases of the circulatory system
CPT/HCPCS: 29881; J0690; A9270; J0461; J1100; J1885; J2250; J2270; J2371; J2405; J2704; J7120

== ENCOUNTER 2024-12-30 08:22 | Outpatient (RCR) | payer OTHER, SELFPAY ==
--- NOTE | 2024-12-30 08:13 | OPREHPOC ---
Outpatient Therapy Plan of Care This is a Multidisciplinary Plan of Care that may contain components documented by all disciplines (PT, OT, and ST.) PT Problem 1 PT Problem #1 Knowledge Deficit PT Goal 1 Goal / Goal Update Independent and compliant with HEP. Target Visit 2 PT Problem 2 PT Problem #2 Pain PT Goal 1 Goal / Goal Update Pt to report no more than 4/10 pain at worst. Target Visit 12 PT Problem 3 PT Problem #3 Impaired Strength PT Goal 1 Goal / Goal Update Pt to improve R knee strength to 5/5 without pain. Target Visit 12 PT Problem 4 PT Problem #4 Impaired Range of Motion PT Goal 1 Goal / Goal Update Pt to improve R knee AROM to 0-120 without pain. Target Visit 12 PT Problem 5 PT Problem #5 Impaired Functional Mobility PT Goal 1 Goal / Goal Update Pt to demonstrate normal gait mechanics without AD . Pt to report 20% reduction in perceived disability on LEFS. Target Visit 12
--- NOTE | 2024-12-30 08:13 | PTOPEVAL1 ---
Assessment and note entered by Ambreen Garcia, PT Evaluation Information Assessment Status Evaluation Diagnosis S/p R arthroscopic partial medial meniscectomy ICD-10 Condition Codes (PT) Pain in right knee M25.561 Other ICD-10 Condition Codes ( Z48.89 PT) Onset 12/26/2024 Subjective Information Pt reports he had a medial meniscectomy on [address] Han and he goes back for a follow up on 01/10/2025. Pt reports his pain is currently 10/10 in severity, his knee is very swollen and he cannot bend it. He has difficulty walking and is not getting much sleep due to discomfort and pain depending on positioning. He also reports a lot of R hip and foot pain that is burning and aching in nature and he can't get comfortable. He is currently taking hydrocodone and reports frequent nausea and BP drops. Reported Pain Level Pain Score 10,6: Self Report Assessment PT Clinical Summary Mr. Guaman is a 59 yo male presenting to skilled PT evaluation s/p R knee medial meniscectomy on . He demonstrates 10/10 pain severity, significantly impaired R knee AROM and strength along with notable R knee edema observed. He demonstrates functional impairments in ambulation and notable gait deficits due to antalgia and recommend pt ambulating with a cane to normalize gait mechanics. 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 Skilled PT intervention is indicated to address pain reduction and deficits in R knee AROM , strength, and ambulation to be able to return to regular performance of ADLs and return to work. Plan of Care Interventions Electrical Stimulation,Gait Training,Hot Pack/Cold Pack,Intermittent Compression Pump,Manual Therapy ,Neuro Re-education,Patient/Caregiver Education, Therapeutic Activities,Therapeutic Exercise,Self- Care/Home Management PT Services Indicated Yes Treatment Frequency and 2x/week for 12 visits Duration These treatments will address the objective and functional deficits as defined above. The patient will be advanced safely and appropriately in order for the patient to progress towards his/her prior level of function. Additional exercises will be introduced and as well as a comprehensive home exercise program upon discharge, if needed, ?to ensure carryover of functional gains achieved in the clinic. This treatment plan has been reviewed and agreement upon by the patient.
--- NOTE | 2025-02-03 08:16 | OPREHPOC ---
Outpatient Therapy Plan of Care This is a Multidisciplinary Plan of Care that may contain components documented by all disciplines (PT, OT, and ST.) PT Problem 1 PT Problem #1 Knowledge Deficit PT Goal 1 Goal / Goal Update Independent and compliant with HEP. Target Visit 2 Progress Met PT Problem 2 PT Problem #2 Pain PT Goal 1 Goal / Goal Update Pt to report no more than 4/10 pain at worst. Target Visit 12 Progress Met PT Problem 3 PT Problem #3 Impaired Strength PT Goal 1 Goal / Goal Update Pt to improve R knee strength to 5/5 without pain. -met Target Visit 12 Progress Met PT Goal 2 Goal / Goal Update Pt to improve bilat hip flexion strength to 5/5. Target Visit 12 PT Problem 4 PT Problem #4 Impaired Range of Motion PT Goal 1 Goal / Goal Update Pt to improve R knee AROM to 0-120 without pain. - met Target Visit 12 Progress Met PT Problem 5 PT Problem #5 Impaired Functional Mobility PT Goal 1 Goal / Goal Update Pt to demonstrate normal gait mechanics without AD . -met Pt to report 20% reduction in perceived disability on LEFS. -met Target Visit 12 Progress Met PT Goal 2 Goal / Goal Update Pt to tolerate kneeling activities on the R knee to be able to return to work. Target Visit 12
--- NOTE | 2025-02-03 08:16 | PTOPPROG ---
Assessment and note entered by Ambreen Garcia, PT Evaluation Information Assessment Status Progress Diagnosis S/p R arthroscopic partial medial meniscectomy ICD-10 Condition Codes (PT) Pain in right knee M25.561 Other ICD-10 Condition Codes ( Z48.89 PT) Onset 12/26/2024 Subjective Information Pt presents for his 10th skilled PT visit following R medial meniscectomy on 12/26/2024. He feels significant improvement compared to initial evaluation. He no longer has pain in the R knee and only experiences slight discomfort when kneeling on his knee. He has a follow up with his surgeon on Monday and feels like he could go back to work without difficulty. Assessment PT Clinical Summary Mr. Guaman has attended 10 skilled PT visits following R medial meniscectomy on 12/26/2024 and he has a follow-up with his surgeon in 2 days. He demonstrates excellent improvements in his pain, knee strength and ROM. He still demonstrates deficits in bilateral hip flexor strength and reduced tolerance to kneeling activities required for his work. Therapeutic sessions have focused primarily on continued hip and knee strengthening and functional activities to progress toward return to work. Pt has been progressing well but given his remaining deficits, continued skilled PT intervention is indicated to make further progress toward functional goals to achieve optimal independence and to return to full duty at work. Plan of Care Interventions Electrical Stimulation,Gait Training,Hot Pack/Cold Pack,Intermittent Compression Pump,Manual Therapy ,Neuro Re-education,Patient/Caregiver Education, Therapeutic Activities,Therapeutic Exercise,Self- Care/Home Management PT Services Indicated Yes Treatment Frequency and Continue per POC (2 visits remaining) Duration These treatments will address the objective and functional deficits as defined above. The patient will be advanced safely and appropriately in order for the patient to progress towards his/her prior level of function. Additional exercises will be introduced and as well as a comprehensive home exercise program upon discharge, if needed, ?to ensure carryover of functional gains achieved in the clinic. This treatment plan has been reviewed and agreement upon by the patient.
--- NOTE | 2025-02-13 08:01 | OPREHPOC ---
Outpatient Therapy Plan of Care This is a Multidisciplinary Plan of Care that may contain components documented by all disciplines (PT, OT, and ST.) PT Problem 1 PT Problem #1 Knowledge Deficit PT Goal 1 Goal / Goal Update Independent and compliant with HEP. Target Visit 2 Progress Met PT Problem 2 PT Problem #2 Pain PT Goal 1 Goal / Goal Update Pt to report no more than 4/10 pain at worst. Target Visit 12 Progress Met PT Problem 3 PT Problem #3 Impaired Strength PT Goal 1 Goal / Goal Update Pt to improve R knee strength to 5/5 without pain. -met Target Visit 12 Progress Met PT Goal 2 Goal / Goal Update Pt to improve bilat hip flexion strength to 5/5. Target Visit 12 Progress Met PT Problem 4 PT Problem #4 Impaired Range of Motion PT Goal 1 Goal / Goal Update Pt to improve R knee AROM to 0-120 without pain. - met Target Visit 12 Progress Met PT Problem 5 PT Problem #5 Impaired Functional Mobility PT Goal 1 Goal / Goal Update Pt to demonstrate normal gait mechanics without AD . -met Pt to report 20% reduction in perceived disability on LEFS. -met Target Visit 12 Progress Met PT Goal 2 Goal / Goal Update Pt to tolerate kneeling activities on the R knee to be able to return to work. Target Visit 12 Progress Met
--- NOTE | 2025-02-13 08:02 | PTOPDC ---
Assessment and note entered by Ambreen Garcia, PT Evaluation Information Assessment Status Discharge Diagnosis S/p R arthroscopic partial medial meniscectomy ICD-10 Condition Codes (PT) Pain in right knee M25.561 Other ICD-10 Condition Codes ( Z48.89 PT) Onset 12/26/2024 Subjective Information Te reports his knee feels really good and he's been cleared by his surgeon to return to work on 02/24. He reports some clicking and discomfort in the R knee but states it's not painful and that his doctor told him it will get better with time. He presents for his last PT visit today and feels ready to discharge from therapy. Reported Pain Level Pain Score 0: Self Report Assessment PT Clinical Summary Mr. Guaman has attended 12 skilled PT visits following R medial meniscectomy on 12/26/2024. Since beginning therapy he has made excellent improvements in his R knee ROM, strength and functional independence. He has met goals addressing these deficits and has been independent with his HEP. He will be discharged from skilled PT this date with plans to return to work on February 24. Plan of Care PT Services Indicated No
== END 2025-02-13 16:30 | disposition home or self-care (01) ==
LOC: CHSPT 08:22
PROVIDERS: Visit Provider Orthopaedic Surgery
DX: Z48.89 Encounter for other specified surgical aftercare (principal); M25.561 Pain in right knee
CPT/HCPCS: 97110; 97112; 97150; 97161; 97530

== ENCOUNTER 2025-03-18 09:25 | Outpatient (CLI) | payer OTHER, SELFPAY ==
--- NOTE | ~2025-03-18 | XR_ITS ---
EXAMINATION: XR ankle LT min 3V, 03/18/2025 9:44 RN LABOR DELIVERY HISTORY: rolls ankle lateral w/ walking, WB pain, Limited ROM, pain COMPARISON: No comparisons available. Findings: No acute fracture or malalignment. No significant degenerative changes. Soft tissues unremarkable. Impression: No acute fracture or malalignment. Reviewed, dictated and finalized at location P. LABOR DELIVERY Impression: No acute fracture or malalignment.
--- OUTSIDE RECORDS SUMMARY | 2025-03-18 10:09 | XMS_ITS | Clinical Summary ---
Author Organization [facility] Address [address] [address] Care Team Providers Care Hand Plug Shaper Name Role Phone Unavailable Primary Care Provider Unavailabl e Source Comments [facility],non-owned Affiliates and Associated Physician Practices is amultiple site organization consisting of ambulatory clinics and hospital sitesin [place], [place], [place] and [place]. This disclosure is being madepursuant to the Care Everywhere program and may not contain all information available regarding this patient. 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
--- OUTSIDE RECORDS SUMMARY | 2025-03-18 10:09 | XMS_ITS | Clinical Summary ---
Author Organization [facility] Address [address] [place] [phone] Care Team Providers Care Groundwater Monitoring Technician Name Role Phone Jose Luis Centeno MD Primary Care Provider Allergies Active Allergy Reactions Criticality Noted Date Comments Penicillins Unknown 01/08/2021 Medications acetaminophen (TYLENOL) 500 mg tablet Take 500 mg by mouth every 6 (six) hours as needed Active Gering's wort 300 mg capsule Take 1 capsule [...] Treatment Not on file Insurance [employer]ET[employer] SIG [id number] Care Teams Groundwater Monitoring Technician Relationship Specialty Start Date End Date Jose Luis Centeno MD [address] [place] [address] PCP - General Internal Medicine 01/12/21
== END 2025-03-18 09:26 | disposition home or self-care (01) ==
PROVIDERS: PCP Internal Medicine; Visit Provider Internal Medicine
DX: M25.572 Pain in left ankle and joints of left foot (principal)
CPT/HCPCS: 73610

== ENCOUNTER 2025-03-19 09:55 | Outpatient (CLI) | payer OTHER, SELFPAY ==
--- NOTE | ~2025-03-19 | XR_ITS ---
EXAMINATION: XR knee RT min 4V, 03/19/2025 10:15 [facility] HISTORY: Z98.890 - Other specified postprocedural states COMPARISON: No comparisons available. Findings: No acute fracture or malalignment. Moderate tricompartmental degenerative changes with chondrocalcinosis and small effusion Soft tissues unremarkable. Impression: No acute fracture or malalignment. Reviewed, dictated and finalized at location P. [facility] Impression: No acute fracture or malalignment.
--- OUTSIDE RECORDS SUMMARY | 2025-03-19 11:03 | XMS_ITS | Encounter Summary ---
Author Organization [facility] Address [facility] [place] [address] Care Team Providers Care Television Newscast Director Name Role Phone Jose Luis Centeno MD Primary Care Provider [phone] Hubert Rodriguez MD Unavailable Stephanie Thomas APRN, FISH SEINER-C Unavailable Saige Castrejon MD Unavailable [phone] Encounter Details Date Type Department Care Team ([facility] Contact Info) Description 01/05/2021 Abstract [facility] [address] [place] [phone] Stephanie Thomas APRN, FISH SEINER-C [address] [facility] [address] [place] [phone] Social History Tobacco Use Types Packs/Day Years Used Date Smoking Tobacco: Never Assessed Sex and Gender Information Value Date Recorded Sex Assigned at Not on file Legal Sex Male 1:36 PM CDT Gender Identity Not on file Sexual Orientation Straight 06/21/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 No / Unsure 01/08/2021 1:46 PM CDT documented as of this encounter Plan of Treatment Upcoming Encounters Date Type Department Care Team ([facility] Contact Info) Description 01/21/2026 10:30 AM CDT Office Visit [facility] eld [address] [place] [phone] Stephanie Thomas APRN, FISH SEINER-C [address] [phone] documented as of this encounter Visit Diagnoses Not on filedocumented in this encounter Additional Health Concerns Infection Onset Date Last Indicated Resolved Time COVID-19 Rule Out 01/26/2021 01/26/2021 01/26/2021 7:34 PM CDT COVID-19 Rule Out 07/06/2021 07/06/2021 07/06/2021 8:02 PM CDT documented as of this encounter Care Teams Television Newscast Director Relationship Specialty Start Date End Date Jose Luis Centeno MD [address] [place] [phone] PCP - General INTERNAL MEDICINE 12/31/20 Hubert Rodriguez MD [address] [place] [phone] Consulting Physician CARDIOVASCULAR DISEASE 12/31/20 Stephanie Thomas APRN, FISH SEINER-C [address] [phone] NURSE PRACTITIONER 12/31/20 Saige Castrejon MD [address] [place], [place] [phone] Consulting Physician INTERVENTIONAL CARDIOLOGY 10/15/24 documented as of this encounter
--- OUTSIDE RECORDS SUMMARY | 2025-03-19 11:03 | XMS_ITS | Clinical Summary ---
Author Organization [facility] Address [address] [place] [phone] Care Team Providers Care News Photographer Name Role Phone Jose Luis Centeno MD Primary Care Provider [phone] Allergies Active Allergy Reactions Criticality Noted Date Comments Penicillins Unknown 01/08/2021 Medications acetaminophen (TYLENOL) 500 mg tablet Take 500 mg by mouth every 6 (six) hours as needed Active [place]'s wort 300 mg capsule Take 1 capsule [...] Treatment Not on file Insurance AETNA SIG [id number] Care Teams News Photographer Relationship Specialty Start Date End Date Jose Luis Centeno MD [address] [place] [address] PCP - General Internal Medicine 01/12/21
--- OUTSIDE RECORDS SUMMARY | 2025-03-19 11:03 | XMS_ITS | Clinical Summary ---
Author Organization [facility] Address [address] [place] [address] Care Team Providers Care Machine Adjuster Leader Case Trim Name Role Phone Unavailable Primary Care Provider Unavailabl e Source Comments [facility],non-owned Affiliates and Associated Physician Practices is amultiple site organization consisting of ambulatory clinics and hospital sitesin [place], [place], [place] and [place]. This disclosure is being madepursuant to the Care Everywhere program and may not contain all information available regarding this patient. 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
--- OUTSIDE RECORDS SUMMARY | 2025-03-19 11:03 | XMS_ITS | Clinical Summary ---
Author Organization [facility] Address [address] [place] [address] Care Team Providers Care Expense Clerk Name Role Phone Jose Luis Centeno MD Primary Care Provider [phone] Stephanie Thomas APRN, NP-C Unavailable Etienne Castrejon MD Unavailable [phone] Allergies Active Allergy Reactions Criticality Noted Date [...] mouth daily. 90 tablet 3 5 Active lisinopril (PRINIVIL) 10 MG tablet Take 1 tablet (10 mg total) by mouth daily. 5 Active Active Problems Problem Noted Date Diagnosed Date S/P coronary artery stent placement 02/08/2021 Coronary artery disease invo lving caddo coronary artery of caddo heart 01/29/2021 Chest pain, unspecified type 01/08/2021 Family history of coronary artery disease 2020 Ventricular ectopy 01/08/2021 Palpitations 01/08/2021 Hyperlipidemia, unspecified hyperlipidemia type 01/08/2021 Encounters Date Type Department Care Team Description 01/22/2025 10:00 AM CDT Office Visit [facility] [address] [place] [address] Stephanie Thomas APRN, MAKE UP WORKERNormaC Follow Up; Coronary Artery Disease 01/22/2025 Travel 01/21/2025 Orders Only [facility] [address] [place] [address] Etienne Castrejon MD from Last 3 Months Family History Medical [...] Sexual Orientation Straight 06/21/2021 6: 51 AM MOBILE 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 Not on file Not on file Not on file Last Filed Vital Signs Vital Sign Reading Time Taken Comments Blood Pressure 118/70 01/22/2025 9:55 AM CDT Pulse 61 01/22/2025 9:55 AM CDT Temperature 36.2 C (97.2 F) 07/09/2021 7:56 AM CDT Respiratory Rate 18 01/22/2025 9:55 AM CDT Oxygen Saturation 96% 01/22/2025 9:55 AM CDT Inhaled Oxygen Concentration - - Weight 84.4 kg (186 lb) 01/22/2025 9:55 AM CDT Height 180.3 cm (5' 11) 01/22/2025 9:55 AM CDT Body Mass Index 25.94 01/22/2025 9:55 AM CDT Plan of Treatment Upcoming Encounters Date Type Department Care Team ([facility] st Contact Info) Description 01/21/2026 10:30 AM CDT Office Visit [facility] el[facility] [address] [place] [phone] Stephanie Thomas, COMIC ARTIST, MAKE UP WORKER-C [address] [facility] [address] [place] [address] Health Maintenance Due Date Last Done Comments Colorectal Cancer Screening Colonoscopy (10 Years) 1965 Annual Physical 01/13/1968 Hepatitis C 1983 Pneumococcal Vaccine: 50+ Ye ars (1 of 2 - PCV) 01/13/1984 Zoster Vaccines (1 of 2) 2015 COVID-19 Vaccine (1 - 2024-2 6 season) 2024 RSV Immunization or 60+ Years (1 - Risk 60-74 years 1-dose series) 2025 Influenza Adult (#1) 2025 DTaP, Tdap and Td Vaccines ( 2 - Td or Tdap) 01/08/2032 01/07/2022 Hepatitis A Vaccines Aged Out No long er eligible based on patient's age to complete this topic Meningococcal B Vaccine Aged Out No l onger eligible based on patient's age to complete this topic Meningococcal Vaccine Aged Out No obdulia jhony eligible based on patient's age to complete this topic RSV Immunizations Under 20 Months Aged Out No longer eligible based on patient's age to complete this topic Medical Devices Implanted Type Area Respiratory Care Assistant Device Identifier Shelf Expiration Date Model / Serial / Lot Cv Synergy 3.5mm X 24mm Leroy Mid Lad- 1 Implanted: by Pravin Schumacher MD (Quantity not on file) Stent Coronary LAD YUPIQ SABRINA 08/25/2022 [id number] / / [id number] Procedures Procedure Name Priority Date/Time Associated Diagnosis Comments ELECTROCARDIOGRAM (NON MIDMARK ACQUIRED) Routine 01/22/2025 9:58 AM CDT Coronary artery disease involving caddo coronary artery of caddo heart with angina pectoris Heart palpitations Hyperlipidemia, mixed from Last 3 Months Results * ELECTROCARDIOGRAM (01/22/2025 9:58 AM CDT) 01/22/2025 9:58 AM CDT Narrative [facility] - 01/22/2025 10:05 AM CDT [facility] [address] [id number] Test Date: 2025-01-22 Pat Name: RAVEN BERMUDEZ Department: 105 Room: Gender: Male Telecommunications Network Engineer: : 1965 Requested By: ETIENNE CASTREJON Order Number: [id number] Reading MD: Etienne Castrejon Measurements Intervals Tucker Rate: 57 P: 38 [place]: 151 QRS: 83 QRSD: 90 T: 62 QT: 380 QTc: 371 Interpretive Statements SINUS BRADYCARDIA Procedure Note Etienne Castrejon MD - 01/22/2025 [facility] [address] [place] [address] Test Date: 2025-01-22 Pat Name: RAVEN MONIQUELOCK Department: 105 Room: Gender: Male Telecommunications Network Engineer: : 1965 Requested By: ETIENNE CASTREJON Order Number: [id number] Reading : Etienne Castrejon Measurements Intervals Tucker Rate: 57 P: 38 [place]: 151 QRS: 83 QRSD: 90 T: 62 QT: 380 QTc: 371 Interpretive Statements SINUS BRADYCARDIA us Etienne Castrejon MD PROCEDURES-ORDERABLE NO KRISTOPHER RGE Final Result [facility] from Last 3 Months Insurance DARIOAnaLAKHWINDER DAVIESAIN Advance Directives * Full Code (Latest Code Status on File) Date Activated Date Inactivated Comments 07/09/2021 1:20 PM 07/09/2021 5:07 PM * Full Code Date Activated Date Inactivated Comments 01/29/2021 9:51 AM 01/29/2021 2:38 PM Care Teams Expense Clerk Relationship Specialty Start Date End Date Jose Luis Centeno MD [address] [place] [phone] PCP - General INTERNAL MEDICINE 12/31/20 Stephanie Thomas APRN, MAKE UP WORKER-C [address] [place] [phone] NURSE PRACTITIONER 12/31/20 Etienne Castrejon MD [address] [place] [phone] Consulting Physician INTERVENTIONAL CARDIOLOGY 10/15/24
--- OUTSIDE RECORDS SUMMARY | 2025-03-19 11:03 | XMS_ITS | Encounter Summary ---
Author Organization [facility] [place] Address [address] [place] [id number] Care Team Providers Care Business Support Manager Name Role Phone Jose Luis Centeno MD Primary Care Provider [phone] Hubert Rodriguez MD Unavailable [phone] Stephanie Thomas APRN PSYCHOLOGY PHYSICIAN-C Unavailable [phone] Saige Castrejon MD Unavailable [phone] Encounter Details Date Type Department Care Team (Late Contact Info) Description 11/25/2022 Abstract [facility] [address] [place] [phone] Hubert Rodriguez MD [address] [place] [phone] Social History Tobacco Use Types Packs/Day Years [...] Orientation Straight 06/21/2021 6: 51 AM BUSINESS QUALITY ASSURANCE ANALYST 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 Not on file Not on file documented as of this encounter Plan of Treatment Upcoming Encounters Date Type Department Care Team (Late Contact Info) Description 01/21/2026 10:30 AM CDT Office Visit [facility] [address] [place] [phone] Stephanie Thomas, MEDICAL EXAMINER, PSYCHOLOGY PHYSICIAN-C [address] [facility] [address] [place] [phone] documented as of this encounter Procedures Procedure Name Priority Date/Time Associated Diagnosis Comments CMP (ABSTRACTED LAB) Routine 10/27/2022 TSH (OUTSIDE LAB) Routine 10/27/2022 CBC (OUTSIDE LAB) Routine 10/27/2022 LIPID PANEL Routine 10/27/2022 THYROXINE, FREE (FT4) Routine 10/27/2022 MAGNESIUM Routine 10/27/2022 documented in this encounter Results * LIPID PANEL (10/27/2022) Pathologist [facility] CHOLESTEROL 180 <200 HDL 58 >or=40 TRIGLYCERIDES 58 <150 CHOL/HDL RATIO 3.1 <5.0 LDL (CALCULATED) 108 10/27/2022 us Default History Genericprovider LABORATORY Final Result * CBC (OUTSIDE LAB) (10/27/2022) Pathologist [facility] WBC 5.2 3.8 - 10.8 HGB 14.9 13.2 - 17.1 HCT 43.4 38.5 - 50.0 PLT 220 140 - 400 RBC 5.11 4.20 - 5.80 10/27/2022 us Default History Genericprovider LAB-OUTSIDE/ABST RACTED Final Result * THYROXINE, FREE (FT4) (10/27/2022) FREE T4 1.0 0.8 - 1.8 10/27/2022 us Default History Genericprovider LABORATORY Final Result * TSH (OUTSIDE LAB) (10/27/2022) Pathologist [facility] TSH 1.24 0.40 - 4.50 10/27/2022 us Default History Genericprovider LAB-OUTSIDE/ABST RACTED Final Result * MAGNESIUM (10/27/2022) Pathologist [facility] MAGNESIUM 1.9 1.5 - 2.5 10/27/2022 us Default History Genericprovider LABORATORY Final Result * CMP (ABSTRACTED LAB) (10/27/2022) Pathologist [facility] SODIUM S/P/B 140 135 - 146 POTASSIUM [...] on filedocumented in this encounter Care Teams Business Support Manager Relationship Specialty Start Date End Date Jose Luis Centeno MD [address] [place] [address] PCP - General INTERNAL MEDICINE 12/31/20 Hubert Rodriguez MD [address] [place] [phone] Consulting Physician CARDIOVASCULAR DISEASE 12/31/20 tSephanie Thomas APRN, PSYCHOLOGY PHYSICIAN-C [address] [facility] [address] [place] [address] NURSE PRACTITIONER 12/31/20 Saige Castrejon MD [address] [place], [place] [address] Consulting Physician INTERVENTIONAL CARDIOLOGY 10/15/24 documented as of this encounter
--- OUTSIDE RECORDS SUMMARY | 2025-03-19 11:03 | XMS_ITS | Patient Health Record ---
Author Organization [facility] Address [address] [place], [place] [id number] Care Team Providers Care Commercial Lines Account Manager Name Role Phone Randee Centeno Unavailable Unavailable Allergies Allergen (clinical drug ingredient) Drug/Non Drug Allergy documented on EMR Reaction Allergy Type Onset Date Status Penicillin Unknown Drug Allergy Active Reason For Referral No Information Medications Medication SIG (Take, Route, Frequency, Duration) Notes Start Date End Date Status Metoprolol Succinate 25 MG Capsule ER 24 Hour Sprinkle 1 capsule Orally Once a day Active Plan Of Treatment No Information Insurance Providers Payer Name Payer Address Payer Phone Subscriber Number Group Number Insured Name Patient Relationship to Insured Coverage Start Date Coverage End Date [facility] [id number] ROLANDO Cruz [phone] [id number] Hbuert Guaman Self - patient is the insured Medical (General) History Medical History History ICD Code acid reflux Pneumonia Back Trouble heart/disease/failure Surgical History Surgery Date(Month/Year) spinal fusion Hernia heart stents
== END 2025-03-19 09:56 | disposition home or self-care (01) ==
PROVIDERS: PCP Internal Medicine; Visit Provider Orthopaedic Surgery
DX: Z98.890 Other specified postprocedural states (principal)
CPT/HCPCS: 73564